=== PATIENT | female | born 2000 | race Two or more races ===

== ENCOUNTER 2024-10-04 08:58 | Emergency (ER) | payer OTHER, MEDICAID, SELFPAY ==
[2024-10-04 08:59] VITALS: BP 125/78; PULSE 46; RESP 16; TEMP 36.9; O2SAT 99
--- NOTE | 2024-10-04 09:07 | XR_ITS ---
Examination: Pelvic ultrasound, transabdominal, complete Technique: Transabdominal ultrasound of the pelvis performed using grayscale imaging Date and time of exam: October 04, 2024 0934 hours INDICATIONS: Pelvic pain beginning 3 days ago. FINDINGS: Uterus 6.8 x 3.2 x 5.9 cm endometrial stripe 0.6 cm No uterine mass or intrauterine gestation Right ovary 3.0 x 3.9 x 3.1 cm arterial flow Left ovary 2.9 x 1.6 x 3.1 cm arterial flow IMPRESSION: Negative examination
[2024-10-04 10:24] LABS: Collection Type, Urine Clean Catch
[2024-10-04 10:25] LABS: Basophils % (Auto) 1 % (0-2.5); Eosinophils # (Auto) 0.1 Thou/mm3 (0.0-0.5); Eosinophils % (Auto) 2 % (0-10); Hematocrit 40.5 % (36.0-46.0); Hemoglobin 13.5 g/dL (12.0-16.0); Immature Granulocytes % (Auto) 0 % (0-0); Immature Granulocytes Auto 0.01 Thou/mm3 (0.00-0.00); Lymphocytes # (Auto) 2.1 Thou/mm3 (1.0-4.8); Lymphocytes % (Auto) 43 % (10-50); Mean Corpuscular HGB Conc 33.3 g/dl (31.0-37.0); Mean Corpuscular Hemoglobin 28.1 pg (25.0-35.0); Mean Corpuscular Volume 84 fL (80-100); Monocytes # (Auto) 0.3 Thou/mm3 (0.0-0.8); Monocytes % (Auto) 5 % (0-12); Neutrophils # (Auto) 2.5 Thou/mm3 (1.8-7.7); Neutrophils % (Auto) 49 % (37-80); Nucleated Red Blood Cell % 0 /100 WBC (0); Platelet Count 199 Thou/mm3 (140-440); RDW Standard Deviation 40.9 fL (36.4-46.3); Red Blood Count 4.81 Miln/mm3 (4.00-5.20)
[2024-10-04 10:35] LABS: Bacteria,Urine 1+; Bilirubin,Urine Negative (Negative); Blood,Urine Negative (Negative); Clarity,Urine Clear (Clear/Hazy); Color,Urine Colorless (Lt Yel-Yel); Glucose, Urine Negative (Negative); Ketones,Urine Negative (Negative); Leukocyte Esterase,Urine Negative (Negative); Nitrite,Urine Negative (Negative); Protein,Urine Negative (Neg - Trace); RBC,Urine 2 /hpf (0-3); Squamous Epithelial Cell,Urine 9 /hpf (0-5); Urobilinogen,Urine Negative mg/dL (0.0-1.0); WBC,Urine 1 /hpf (0-5)
[2024-10-04 10:48] LABS: Alanine Aminotransferase 25 U/L (10-49); Albumin, Serum 4.7 gm/dL (3.5-5.0); Albumin/Globulin Ratio 1.8 (1.2-2.2); Alkaline Phosphatase 67 U/L (46-116); Anion Gap 7 (7-16); Aspartate Amino Transferase 19 U/L (0-34); BUN/Creatinine Ratio 14 Ratio (12-20); Bilirubin,Total 0.5 mg/dL (0.3-1.2); Blood Urea Nitrogen 10 mg/dL (9-23); Calcium 9.6 mg/dL (8.3-10.6); Calcium (Corrected) 9.6 mg/dL (8.5-10.1); Carbon Dioxide 25.4 mMol/L (20.0-31.0); Chloride 105 mMol/L (98-107); Creatinine (Component) 0.7 mg/dL (0.6-1.3); Globulin 2.6 gm/dL (2.3-3.5); Glucose 85 mg/dL (74-106); Lipase 34 U/L (12-53); Osmolality,Calculated 271 (275-295); Sodium 137 mMol/L (136-145); Total Protein 7.3 gm/dL (5.7-8.2); eGFR > 60 See Note
[2024-10-04 10:56] LABS: Culture Indicated,Urine Yes
[2024-10-04 11:07] LABS: HCG Qualitative,Urine Negative
--- NOTE | 2024-10-04 12:05 | PD.EDABDPN ---
ED Abdominal Pain RME/HPI General Chief Complaint: Abdominal Pain Stated complaint: lower abd pain x 3 days Time seen by provider: 10/04/24 09:00 Arrival date/time: 10/04/24 08:58 23-year-old female presents emergency department complains of pelvic pain ongoing x 3 days Limitations: no limitations Related Data Previous Rx's ?Medication ?Instructions ?Recorded tahshanrzfdhibg-yzktdmrdpfputyg-IZ 5 ml PO Q6H PRN congestion/cough 11/22/23 2 mg-30 mg-10 mg/5 mL oral syrup #120 mL (Bromfed DM) yjflyjufohijfmd-coctlygnoyitjhf-JV 5 ml PO Q6H PRN congestion/cough 11/22/23 2 mg-30 mg-10 mg/5 mL oral syrup #120 mL (Bromfed DM) ibuprofen 600 mg tablet 600 mg PO Q6H PRN fever or pain 11/22/23 #30 tabs ibuprofen 600 mg tablet 600 mg PO Q6H PRN fever or pain 11/22/23 #30 tabs ibuprofen 600 mg tablet 600 mg PO Q6H #30 tabs 10/04/24 Allergies Allergy/AdvReac Type Severity Reaction Status Date / Time No Known Allergies Allergy Verified 10/04/24 08:58 Review of Systems Review of Systems Systems Reviewed: All systems reviewed, normal except as documented Constitutional Constitutional: Reports system reviewed and no additional complaints, except as documented, Denies fever(s) and Denies headache(s) Eyes Eyes: Reports system reviewed and no additional complaints, except as documented and Denies blurry vision ENT Ears, Nose, Mouth, and Throat: Reports system reviewed and no additional complaints, except as documented, Denies headache(s), Denies nasal congestion and Denies nasal discharge Cardiovascular Cardiovascular: Reports system reviewed and no additional complaints, except as documented, Denies chest pain and Denies dyspnea Respiratory Respiratory: Reports system reviewed and no additional complaints, except as documented, Denies chest congestion, Denies cough and Denies dyspnea Gastrointestinal Gastrointestinal: Reports system reviewed and no additional complaints, except as documented and Denies abdominal pain Genitourinary Genitourinary: Reports system reviewed and no additional complaints, except as documented, Denies abnormal vaginal bleeding, Denies hematuria, Reports pelvic pain, Denies vaginal discharge, Denies vaginal dryness, Denies vaginal odor and Denies vaginal pruritus Integumentary/Breasts Skin/Breast: Reports system reviewed and no additional complaints, except as documented and Denies rash Neurologic Neurologic: Reports system reviewed and no additional complaints, except as documented, Reports as per HPI and Denies headache(s) Past Medical History Past Medical History NEUROLOGIC: Negative Neurological Disorders CARDIAC: Negative Cardiac Disorders ED Exam General Limitations: Present no limitations General appearance: Present alert and in no apparent distress Head Head exam: Present atraumatic Eye Eye exam: Present normal appearance, PERRL and EOMI ENT ENT exam: Present normal exam, normal oropharynx and mucous membranes moist Neck Neck exam: Present normal inspection, full ROM and trachea midline Chest Chest inspection: Present normal inspection and symmetric chest wall rise Respiratory Respiratory exam: Present normal lung sounds bilaterally Cardiovascular Cardiovascular exam: Present regular rate, normal rhythm and normal heart sounds Abdominal Exam Abdominal exam: Present soft and normal bowel sounds Extremities Exam Extremities exam: Present normal inspection and full ROM Back Exam Back exam: Present normal inspection and full ROM Neurological Exam Neurological exam: Present alert, oriented X3 and CN II-XII intact Psychiatric Psychiatric exam: Present normal affect and normal mood Skin Skin exam: Present warm, dry, intact and normal color Course Quality Measures none Orders Category Date Time Status US pelvic complete Stat Exams 10/04/24 09:07 Completed CBC Stat Lab 10/04/24 10:15 Completed Comprehensive Metabolic Panel Stat Lab 10/04/24 10:15 Completed HCG Qualitative,Urine Stat Lab 10/04/24 10:06 Completed Lipase Stat Lab 10/04/24 10:15 Completed UA, C/S IF [Urinalysis, C/S if Indicated] Stat Lab 10/04/24 10:06 Completed Urine Culture Stat Lab 10/04/24 10:06 Received Vital Signs Vital signs: Vital Signs Temperature 98.5 F 10/04/24 08:59 Pulse Rate 46 L 10/04/24 08:59 Respiratory Rate 16 10/04/24 08:59 Blood Pressure 125/78 10/04/24 08:59 Pulse Oximetry (%) 99 10/04/24 08:59 Oxygen Delivery Method Room Air 10/04/24 08:59 O2 saturation 99% room air within normal limits Abdominal Pain MDM MDM Narrative MDM Narrative:: 23-year-old female presents emergency department complains of pelvic pain ongoing x 3 days On exam patient well-appearing patient does not appear ill or toxic patient's not appear in acute distress Lab work as well as ultrasound obtained no acute emergent findings noted Patient discharged home in no distress to follow-up with primary care doctor in the next 24 to 48 hours and for any worsening symptoms to return to the ER immediately Patient data External records reviewed:: [facility] previous records Clinical information provided by:: patient Social determinants that could affect healthcare access:: none Patient has the following chronic illnesses:: None How is presenting disease/condition affected by chronic disease/condition?: no chronic disease Evaluation data The following diagnostics were reviewed and interpreted by me:: lab results and radiology exam(s) Lab and/or radiology exams considered but not ordered:: Labs radiology obtained Interpretation Summary: Reviewed by me Medications / Prescriptions Medications or Prescriptions considered but not ordered:: Given no meds Medication administrations:: Given no meds Consultations Consultation(s) initiated? (list below): No Diagnosis Differential diagnosis abdominal pain: abdominal pain, acute appendicitis, calculus of kidney and pancreatitis Most likely diagnosis given after review of the tests above:: Pelvic pain Admission Indicated Admission indicated?: not indicated Admission Request Was there a request for admission?: No Disposition Plan Disposition Plan: Discharge Discharge Attestation Discharge Attestation: The patient and all family members were given an opportunity to ask questions and understood the discharge instructions. Discharge instructions specifically effects, indications for sooner follow up or return to the emergency department, and the expected course of current diagnosis. Patient condition: Stable Discharge Plan Plan Patient Disposition: HOME (Self Care) Disposition Comment: Stable Prescriptions/Referrals Prescriptions/Med Rec: New ibuprofen 600 mg tablet 600 mg PO Q6H Qty: 30 0RF No Action rcvaqleqtkbfmxl-yrxhvqgja-ZY [Bromfed DM] 2-30-10 mg/5 mL syrup 5 ml PO Q6H PRN (Reason: congestion/cough) Qty: 120 0RF ibuprofen 600 mg tablet 600 mg PO Q6H PRN (Reason: fever or pain) Qty: 30 0RF ibuprofen 600 mg tablet 600 mg PO Q6H PRN (Reason: fever or pain) Qty: 30 0RF jumrrqdyqpkauxu-cjfbtywio-KL [Bromfed DM] 2-30-10 mg/5 mL syrup 5 ml PO Q6H PRN (Reason: congestion/cough) Qty: 120 0RF Referrals: Cali Bernal MD [Primary Care Provider] - 10/06/24 Problem List Clinical Impression: Pelvic pain Patient/Caregiver Discharge Instructions Education Materials: ED Pelvic Pain, Unknown Cause Additional Instructions: Please follow up with your primary care doctor in the next 24-48hrs for any worsening symptoms return here immediately Print Language: Slovak Stand Alone Forms: Shaila Award Info., Work/School Release, Patient Portal Info Letter MD Attestation MD Attestation The patient was seen by the midlevel practitioner. I, the co-signing physician, was present during the entire ER visit. While I did not physically examine the patient, I was available for consultation as needed.
== END 2024-10-04 12:29 | disposition home or self-care (01) ==
PROVIDERS: Nurse Practitioner Primary Care; Emergency Provider Emergency Medicine; PCP Family Medicine
DX: R10.2 Pelvic and perineal pain (principal)
CPT/HCPCS: 36415; 76856; 80053; 81001; 81025; 83690; 85025; 87086; 99284

== ENCOUNTER 2024-10-30 05:19 | Emergency (ER) | payer OTHER, MEDICAID, SELFPAY ==
[2024-10-30 05:20] VITALS: BMI 29.2
[2024-10-30 05:28] VITALS: BP 113/71; PULSE 57; RESP 19; TEMP 36.6; O2SAT 98
--- NOTE | 2024-10-30 05:36 | XR_ITS ---
Examination: Pelvic ultrasound, transabdominal, complete Technique: Transabdominal ultrasound of the pelvis performed using grayscale imaging Date and time of exam: October 30, 2024 0720 hrs. Comparison October 04, 2024 Indications: Onset right-sided pelvic pain beginning one month ago Findings: Uterus 8.8 x 3.5 x 4.6 cm No uterine mass or intrauterine gestation Endometrial stripe 0.9 cm Right ovary 3.3 x 2.8 x 2.6 cm arterial flow Left ovary 4.0 x 3.3 x 3.2 cm arterial flow No fluid in the cul-de-sac Impression: Negative examination
--- NOTE | 2024-10-30 05:37 | PD.EDRME ---
Rapid Medical Screening Exam RME Arrival date/time: 10/30/24 05:19 24-year-old female presents emergency department complaining of right pelvic pain that is been ongoing for several weeks. Chief Complaint: Urogenital-Female Vital signs: Vital Signs Temperature 97.9 F 10/30/24 05:28 Pulse Rate 57 L 10/30/24 05:28 Respiratory Rate 19 10/30/24 05:28 Blood Pressure 113/71 10/30/24 05:28 Pulse Oximetry (%) 98 10/30/24 05:28 Oxygen Delivery Method Room Air 10/30/24 05:28 Vital signs reviewed by provider: Yes
[2024-10-30 06:48] LABS: Collection Type, Urine Clean Catch
[2024-10-30 07:31] LABS: Bacteria,Urine Rare; Bilirubin,Urine Negative (Negative); Blood,Urine Negative (Negative); Clarity,Urine Clear (Clear/Hazy); Color,Urine Lt-Brown (Lt Yel-Yel); Culture Indicated,Urine Not Indicated; Glucose, Urine Negative (Negative); Ketones,Urine Negative (Negative); Leukocyte Esterase,Urine Negative (Negative); Nitrite,Urine Negative (Negative); Protein,Urine Negative (Neg - Trace); RBC,Urine < 1 /hpf (0-3); Specific Gravity,Urine 1.031 (1.001-1.035); Squamous Epithelial Cell,Urine 10 /hpf (0-5); Urobilinogen,Urine Negative mg/dL (0.0-1.0); WBC,Urine 6 /hpf (0-5)
[2024-10-30 07:34] LABS: Basophils % (Auto) 1 % (0-2.5); Eosinophils # (Auto) 0.1 Thou/mm3 (0.0-0.5); Eosinophils % (Auto) 2 % (0-10); Hematocrit 40.4 % (36.0-46.0); Hemoglobin 13.3 g/dL (12.0-16.0); Immature Granulocytes % (Auto) 0 % (0-0); Lymphocytes # (Auto) 2.2 Thou/mm3 (1.0-4.8); Lymphocytes % (Auto) 42 % (10-50); Mean Corpuscular HGB Conc 32.9 g/dl (31.0-37.0); Mean Corpuscular Volume 85 fL (80-100); Monocytes # (Auto) 0.3 Thou/mm3 (0.0-0.8); Monocytes % (Auto) 6 % (0-12); Neutrophils # (Auto) 2.6 Thou/mm3 (1.8-7.7); Neutrophils % (Auto) 50 % (37-80); Nucleated Red Blood Cell % 0 /100 WBC (0); Platelet Count 192 Thou/mm3 (140-440); RDW Standard Deviation 41.6 fL (36.4-46.3); Red Blood Count 4.75 Miln/mm3 (4.00-5.20); White Blood Count 5.2 Thou/mm3 (3.6-11.0)
[2024-10-30 07:40] LABS: Alanine Aminotransferase 26 U/L (10-49); Albumin, Serum 4.8 gm/dL (3.5-5.0); Albumin/Globulin Ratio 2.2 (1.2-2.2); Alkaline Phosphatase 73 U/L (46-116); Anion Gap 2 (7-16); Aspartate Amino Transferase 16 U/L (0-34); BUN/Creatinine Ratio 13 Ratio (12-20); Bilirubin,Total 0.4 mg/dL (0.3-1.2); Blood Urea Nitrogen 10 mg/dL (9-23); Calcium 9.2 mg/dL (8.3-10.6); Calcium (Corrected) 9.2 mg/dL (8.5-10.1); Carbon Dioxide 25.6 mMol/L (20.0-31.0); Chloride 107 mMol/L (98-107); Creatinine (Component) 0.8 mg/dL (0.6-1.3); Estimated Creatinine Clearance 99.4 mL/min (>60); Globulin 2.2 gm/dL (2.3-3.5); Glucose 98 mg/dL (74-106); HCG,Qualitative Serum Negative; Osmolality,Calculated 269 (275-295); Potassium 4.4 mMol/L (3.4-5.1); Sodium 135 mMol/L (136-145); eGFR > 60 See Note
--- NOTE | 2024-10-30 07:48 | XR_ITS ---
Examination: CT abdomen and pelvis without contrast. Coronal 3-D reconstructions. Sagittal 2-D reconstructions. Date and time of exam:October 30, 2024 0848 hrs. Comparison March 31, 2020 Indications: Right-sided abdominal pain radiating to the back beginning 2 weeks ago CTDI: vol (mGy): 8.91 DLP: (mGycm): 459 Technique: Axial images of the abdomen have been obtained, 3 mm slice thickness Intravenous contrast material has not been administered. Low dose protocols were performed. One or more of the following dose reduction techniques were used; automated exposure control, adjustment of the mA and/or KV according to patient size, use of iterative reconstruction technique. Findings: No focal liver or splenic lesions No gallstones No pancreatic or adrenal mass No renal or ureteral calculi, no hydronephrosis Aorta normal size No bowel obstruction Absent appendix No diverticulitis Anteverted uterus with no uterine or adnexal mass Intact urinary bladder No hernia defect Mild disc narrowing L5-S1 L5-S1 3 mm right paracentral disc bulge Impression: No acute process in the abdomen or pelvis Mild degenerative disc disease L5-S1 L5-S1 3 mm right paracentral disc bulge contiguous with the right S1 nerve root, consider elective MRI lumbar spine without contrast follow-up
[2024-10-30 07:49] VITALS: BP 120/87; PULSE 41; RESP 19; TEMP 37.1; O2SAT 99
[2024-10-30 08:09] LABS: Sperm,Urine Present
[2024-10-30 08:16] VITALS: PULSE 38
[2024-10-30 09:04] VITALS: BP 108/69; PULSE 43; RESP 15; TEMP 36.9; O2SAT 100
[2024-10-30] MEDS: ATROPINE SULF INJ 0.1 MG/ML SYR 10 ML 1 MG IV (09:33)
[2024-10-30 10:01] LABS: B-Type Natriuretic Peptide < 20 pg/mL (0-100)
[2024-10-30 10:04] LABS: Magnesium 2.2 mg/dL (1.6-2.6); Thyroid Stimulating Hormone 3.12 uIU/mL (0.55-4.78); Troponin I < 0.020 ng/mL (0.0-0.045)
[2024-10-30 11:15] VITALS: BP 109/62; PULSE 51; RESP 19; TEMP 36.8; O2SAT 98
[2024-10-30 11:57] VITALS: BP 101/63; PULSE 47; RESP 20; TEMP 36.8; O2SAT 99
--- NOTE | 2024-10-30 12:00 | EDNOTE_ITS ---
ED Abdominal Pain RME/HPI General Chief Complaint: Urogenital-Female Stated complaint: PELVIC PAIN X 3WEEKS Time seen by provider: 10/30/24 06:32 Arrival date/time: 10/30/24 05:19 RME / HPI RME / HPI narrative: 10/30/24 05:19 24-year-old female presents emergency department complaining of right pelvic pain that is been ongoing for several weeks. This section includes all my notes and documentations, including HPI, PE, and ED course.? Bon Estrada MD HPI: 24 year old female here with about a month history of right sided abdominal/back pain. Has trouble localizing the pain further. Has trouble describing the quality and quantity of the pain. Uncertain about exacerbating or relieving factors. No other complaints. ROS: All negative except as documented in HPI. Physical Exam: General:? Alert and oriented.? No acute distress when remaining still. Eyes:? Conjunctivae and lids clear.? ENT:? No nasal congestion.? Neck:? Supple.? Heart:? RRR.? Lungs:? No respiratory distress.? Good air movement.? No rhonchi, wheezing, rales.?? Abdomen:? Soft with equivocal tenderness, difficult to localize.? Normal bowel sounds.? No distension.? No rebound or guarding.?? Back:? No CVA tenderness.?? Skin:? Warm and dry.?? Neuro:? Alert and oriented X 3.? No peripheral motor deficits. I reviewed all diagnostic test results. My interpretation of the EKG is sinus bradycardia with nonspecific ST-T changes. My review of the pelvic US report is no acute findings. My review of the abdominal CT report is L5-S1 bulging with stenosis. Blood tests and urine tests are unremarkable. At this point, diagnoses include?L5-S1 stenosis and bradycardia. Treatment here included?Atropine 1 mg IV. Patient reports on and off malaise and fatigue and dizziness. No syncope or near syncope. Patient remained stable. 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 About the presentation and exam and diagnostics and treatments here.? And possible need of further care in the hospital.? Recommended more outpatient cardiac workup. Recommended more outpatient care. Based on my best medical judgment, made decision no further evaluation or treatment indicated at this time.? Patient understands and agrees to the discharge instructions customized and printed, see below. Discharge Instructions from Dr. Estrada: --After evaluation, your sided pain is due to pinched L5-S1 nerve due to disc bulging. This is Sciatica (same as Lumbar Radiculopathy or Spinal Stenosis). --This condition is difficult because normal pain medications don?t work very well on nerve pain. --Despite the pain, try to resume your normal chores and activities.? Because inactivity is terrible for this condition.? And activity won?t make your condition worse.? Use a cane of stick in your left hand to help stand and walk.? --Use Ibuprofen and snyf-olq-wkfzsto lidocaine patches and Tylenol with codeine and lidocaine patches as needed.? Don't expect the pain to go away completely, hoping to take the edge off.?? --When resting and sleeping, try left sided position (with your knees to your chest and bending forward).? This can take some pressure off the nerve and help your pain. --Apply ice or heat if helpful. --See a private doctor (outside the ER) on 11/01/2024 for recheck and further care. Ask to help you get more care not available here in the ER.? Such as MRI imaging of your back.? Some choose to have surgery for this condition. But you need to have MRI imaging to confirm the diagnosis and assess the severity to get the best treatments. And for your slow heart rate, ask to help you get more tests for your heart that cannot be done here in the ER. Such as Holter Monitor (cardiac monitoring at home from a day to even a month), heart stress test (on treadmill or with medication), echocardiogram (imaging of your heart structures), heart catherization (checking for blockages in your heart arteries), and a referral to see a [facility]. --Seek immediate medical care with paralysis in your foot, losing control of your bladder or bowels, saddle numbness (anal numbness), or with any concerns.?? Related Data Previous Rx's ?Medication ?Instructions ?Recorded acetaminophen 300 mg-codeine 30 mg 2 tab PO TID PRN pain #20 tabs 10/30/24 tablet Allergies Allergy/AdvReac Type Severity Reaction Status Date / Time No Known Allergies Allergy Verified 10/04/24 08:58 Course Quality Measures none Orders Category Date Time Status EKG (ED ONLY) *Do not use* NOW Care 10/30/24 08:34 Completed Saline [Insert IV] NOW Care 10/30/24 08:[address] abdomen pelvis wo con Stat Exams 10/30/24 07:48 Completed EKG (ED Only) Stat Exams 10/30/24 08:34 Ordered US pelvic complete Stat Exams 10/30/24 05:36 Completed BNP [B-Type Natriuretic Peptide] Stat Lab 10/30/24 09:17 Completed CBC Stat Lab 10/30/24 07:18 Completed CMP [Comprehensive Metabolic Panel] Stat Lab 10/30/24 07:18 Completed HCG,Qualitative Serum Stat Lab 10/30/24 07:18 Completed Magnesium Stat Lab 10/30/24 09:17 Completed TSH [Thyroid Stimulating Hormone] Stat Lab 10/30/24 09:17 Completed Troponin I Stat Lab 10/30/24 09:17 Completed Urinalysis, C/S if Indicated Stat Lab 10/30/24 06:44 Completed Atropine Inj SYR Med 10/30/24 09:15 Discontinued 1 mg IV X1 ONE Vital Signs Vital signs: Vital Signs Temperature 97.9 F 10/30/24 05:28 Pulse Rate 57 L 10/30/24 05:28 Respiratory Rate 19 10/30/24 05:28 Blood Pressure 113/71 10/30/24 05:28 Pulse Oximetry (%) 98 10/30/24 05:28 Oxygen Delivery Method Room Air 10/30/24 05:28 Abdominal Pain MDM Patient data External records reviewed:: [facility] previous records Clinical information provided by:: patient Social determinants that could affect healthcare access:: none Patient has the following chronic illnesses:: none How is presenting disease/condition affected by chronic disease/condition?: no chronic disease Evaluation data The following diagnostics were reviewed and interpreted by me:: lab results, radiology exam(s) and EKG tracing(s) Lab and/or radiology exams considered but not ordered:: none Interpretation Summary: L5-S1 stenosis and bradycardia Medications / Prescriptions Medications or Prescriptions considered but not ordered:: none Medication administrations:: Medication Administration History Discontinued Medications Atropine Sulfate (Atropine Sulf Inj 0.1 Mg/Ml Syr 10 Ml) 1 mg IV X1 ONE Stop: 10/30/24 09:16 Last Admin: 10/30/24 09:33 Dose: 1 mg Documented By: GM atropine Consultations Consultation(s) initiated? (list below): Yes Diagnosis Differential diagnosis abdominal pain: acute appendicitis, calculus of kidney, constipation, diverticulitis, endometriosis, gastroenteritis and small bowel obstruction Most likely diagnosis given after review of the tests above:: L5-S1 stenosis and bradycardia Admission Indicated Admission indicated?: not indicated Admission Request Was there a request for admission?: No Disposition Plan Disposition Plan: Discharge Discharge Attestation Discharge Attestation: The patient and all family members were given an opportunity to ask questions and understood the discharge instructions. Discharge instructions specifically effects, indications for sooner follow up or return to the emergency department, and the expected course of current diagnosis. Patient condition: Stable Discharge Plan Plan Patient Disposition: HOME (Self Care) Prescriptions/Referrals Prescriptions/Med Rec: New acetaminophen-codeine 300-30 mg tablet 2 tab PO TID MDD 6 PRN (Reason: pain) Qty: 20 0RF Referrals: Gianfranco Oliver [Primary Care Provider] - In 1 week Problem List Clinical Impression: Right sciatic nerve pain Patient/Caregiver Discharge Instructions Discharge Activity: activity as tolerated Education Materials: ED Bradycardia, ED Sciatica Additional Instructions: Discharge Instructions from Dr. Estrada: --After evaluation, your sided pain is due to pinched L5-S1 nerve due to disc bulging. This is Sciatica (same as Lumbar Radiculopathy or Spinal Stenosis). --This condition is difficult because normal pain medications don?t work very well on nerve pain. --Despite the pain, try to resume your normal chores and activities.? Because inactivity is terrible for this condition.? And activity won?t make your condition worse.? Use a cane of stick in your left hand to help stand and walk.? --Use Ibuprofen and urgu-bez-nxkmgqi lidocaine patches and Tylenol with codeine and lidocaine patches as needed.? Don't expect the pain to go away completely, hoping to take the edge off.?? --When resting and sleeping, try left sided position (with your knees to your chest and bending forward).? This can take some pressure off the nerve and help your pain. --Apply ice or heat if helpful. --See a private doctor (outside the ER) on 11/01/2024 for recheck and further care. Ask to help you get more care not available here in the ER.? Such as MRI imaging of your back.? Some choose to have surgery for this condition. But you need to have MRI imaging to confirm the diagnosis and assess the severity to get the best treatments. And for your slow heart rate, ask to help you get more tests for your heart that cannot be done here in the ER. Such as Holter Monitor (cardiac monitoring at home from a day to even a month), heart stress test (on treadmill or with medication), echocardiogram (imaging of your heart structures), heart cat herization (checking for blockages in your heart arteries), and a referral to see a [facility]. --Seek immediate medical care with paralysis in your foot, losing control of your bladder or bowels, saddle numbness (anal numbness), or with any concerns.?? Print Language: Botswanan Stand Alone Forms: Shaila Award Info., Patient Portal Info Letter
== END 2024-10-30 12:16 | disposition home or self-care (01) ==
PROVIDERS: Emergency Provider Emergency Medicine; PCP Internal Medicine
DX: M54.31 Sciatica, right side (principal)
CPT/HCPCS: 36415; 74176; 76856; 80053; 81001; 83735; 83880; 84443; 84484; 84703; 85025; 99284; J0461

== ENCOUNTER 2024-11-05 21:18 | Emergency (ER) | payer OTHER, MEDICAID, SELFPAY ==
[2024-11-05 21:19] VITALS: BMI 30.5
--- NOTE | 2024-11-05 21:24 | EKG_ITS ---
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
[2024-11-05 21:26] VITALS: BP 111/75; PULSE 57; RESP 18; TEMP 36.9; O2SAT 98
--- NOTE | 2024-11-05 21:43 | XR_ITS ---
Examination: PA lateral chest 2 views Technique: Upright PA lateral chest 2 views Indications: Onset chest pain today Findings: Normal heart size Lungs are clear. The osseous structures are intact Impression: No active disease
--- NOTE | 2024-11-05 21:43 | PD.EDRME ---
Rapid Medical Screening Exam RME Arrival date/time: 11/05/24 21:18 24F with no significant PMH presents to ED with 1 day of CP and SOB. Patient notes her HR has been slower than usual recently. Patient denies taking any meds, as well as drug/alcohol use. Chief Complaint: Chest Pain Time Seen by Provider: 11/05/24 21:55 Vital signs: Vital Signs Temperature 98.4 F 11/05/24 21:26 Pulse Rate 57 L 11/05/24 21:26 Respiratory Rate 18 11/05/24 21:26 Blood Pressure 111/75 11/05/24 21:26 Pulse Oximetry (%) 98 11/05/24 21:26 Oxygen Delivery Method Room Air 11/05/24 21:26
[2024-11-05 22:23] LABS: Basophils # (Auto) 0.1 Thou/mm3 (0.0-0.2); Basophils % (Auto) 1 % (0-2.5); Eosinophils # (Auto) 0.2 Thou/mm3 (0.0-0.5); Eosinophils % (Auto) 2 % (0-10); Hematocrit 36.7 % (36.0-46.0); Hemoglobin 12.7 g/dL (12.0-16.0); Immature Granulocytes % (Auto) 0 % (0-0); Immature Granulocytes Auto 0.02 Thou/mm3 (0.00-0.00); Lymphocytes % (Auto) 43 % (10-50); Mean Corpuscular HGB Conc 34.6 g/dl (31.0-37.0); Mean Corpuscular Hemoglobin 28.7 pg (25.0-35.0); Mean Corpuscular Volume 83 fL (80-100); Monocytes # (Auto) 0.3 Thou/mm3 (0.0-0.8); Monocytes % (Auto) 5 % (0-12); Neutrophils # (Auto) 3.3 Thou/mm3 (1.8-7.7); Neutrophils % (Auto) 48 % (37-80); Nucleated Red Blood Cell % 0 /100 WBC (0); Platelet Count 213 Thou/mm3 (140-440); RDW Standard Deviation 40.7 fL (36.4-46.3); Red Blood Count 4.43 Miln/mm3 (4.00-5.20); White Blood Count 6.8 Thou/mm3 (3.6-11.0)
[2024-11-05 22:34] LABS: B-Type Natriuretic Peptide < 20 pg/mL (0-100)
[2024-11-05 22:35] LABS: Alanine Aminotransferase 29 U/L (10-49); Albumin, Serum 4.7 gm/dL (3.5-5.0); Alkaline Phosphatase 73 U/L (46-116); Anion Gap 6 (7-16); Aspartate Amino Transferase 20 U/L (0-34); BUN/Creatinine Ratio 16 Ratio (12-20); Bilirubin,Total 0.3 mg/dL (0.3-1.2); Blood Urea Nitrogen 13 mg/dL (9-23); Calcium 9.8 mg/dL (8.3-10.6); Calcium (Corrected) 9.8 mg/dL (8.5-10.1); Carbon Dioxide 27.7 mMol/L (20.0-31.0); Chloride 107 mMol/L (98-107); Creatinine (Component) 0.8 mg/dL (0.6-1.3); Estimated Creatinine Clearance 101.5 mL/min (>60); Globulin 2.4 gm/dL (2.3-3.5); Glucose 80 mg/dL (74-106); Osmolality,Calculated 280 (275-295); Potassium 4.1 mMol/L (3.4-5.1); Sodium 141 mMol/L (136-145); Total Protein 7.1 gm/dL (5.7-8.2); Troponin I < 0.020 ng/mL (0.0-0.045); eGFR > 60 See Note
--- NOTE | 2024-11-05 22:40 | EDNOTE_ITS ---
ED Chest Pain RME/HPI General Chief Complaint: Chest Pain Stated Complaint: CHEST PAIN Time Seen by Provider: 11/05/24 21:55 Arrival date/time: 11/05/24 21:18 RME / HPI RME / HPI narrative: 24-year-old female patient came in for evaluation regarding left-sided chest pain. Onset of symptoms earlier this morning as sudden onset of left-sided chest pain, with shortness of breath, described as dull ache, severity mild. Patient noticed that her heart rate was also lower than usual recently. Patient told me that everything started after drinking coffee. Patient denies any other complaints no medications taken prior to arrival. Patient is waiting to be seen by wool hat sanding machine operator. Related Data Previous Rx's ?Medication ?Instructions ?Recorded acetaminophen 300 mg-codeine 30 mg 2 tab PO TID PRN pain #20 tabs 10/30/24 tablet Allergies Allergy/AdvReac Type Severity Reaction Status Date / Time No Known Allergies Allergy Verified 10/04/24 08:58 Review of Systems Review of Systems Narrative Review of Systems: Review of system reviewed and within normal limits except mentioned in HPI ED Exam Narrative Physical exam: VITAL SIGNS: Reviewed. GENERAL APPEARANCE: Alert and interactive, follows commands, no acute distress, HEAD AND FACE: Non-traumatic. ENT: PERRL, pink conjunctivitis, eyelid no trauma, Mucous membrane moist. NECK: Supple, nontender, no nuchal rigidity. CHEST: No tenderness, no crepitus, no paradoxical movement, no retractions. LUNGS: Clear, well ventilated, symmetric, no rales, no wheezing, no ronchi, no stridor, good breath sounds bilaterally. HEART: Regular rate, regular rhythm, no murmur, no gallops. ABDOMEN: Soft, positive bowel sounds, nondistended, no guarding, nontender, no rebound, no masses, RECTAL: Deferred. GENITAL: Deferred. NEUROLOGICAL: Gross motor function intact sensory function intact, Appropriate for age. MUSCULOSKELETAL: low back nontender, full range of motion. EXTREMITIES: Nontender, full range of motion. SKIN: Color pink, dry, no rash, no lacerations, no abrasions, no contusions. LYMPHATICS: Deferred. Course Quality Measures none Orders Category Date Time Status EKG (ED ONLY) *Do not use* NOW Care 11/05/24 21:25 Completed EKG (ED Only) Stat Exams 11/05/24 21:24 Draft XR chest 2V Stat Exams 11/05/24 21:43 Completed B-Type Natriuretic Peptide Stat Lab 11/05/24 22:02 Completed CBC Stat Lab 11/05/24 22:02 Completed Comprehensive Metabolic Panel Stat Lab 11/05/24 22:02 Completed Drug Screen,Urine Stat Lab 11/05/24 22:19 Completed Troponin I Stat Lab 11/05/24 22:02 Completed Vital Signs Vital signs: Vital Signs Temperature 98.4 F 11/05/24 21:26 Pulse Rate 57 L 11/05/24 21:26 Respiratory Rate 18 11/05/24 21:26 Blood Pressure 111/75 11/05/24 21:26 Pulse Oximetry (%) 98 11/05/24 21:26 Oxygen Delivery Method Room Air 11/05/24 21:26 Chest Pain MDM Narrative MDM Narrative:: 24-year-old female patient came in for evaluation regarding left-sided chest pain. Onset of symptoms earlier this morning as sudden onset of left-sided chest pain, with shortness of breath, described as dull ache, severity mild. Patient noticed that her heart rate was also lower than usual recently. Patient told me that everything started after drinking coffee. Patient denies any other complaints no medications taken prior to arrival. Patient is waiting to be seen by wool hat sanding machine operator. Cardiac workup all came back unremarkable including EKG that showed sinus bradycardia, ventricular rate of 45 bpm, no ST segment ovation depression noted. Currently patient is not having any chest pain. Patient was advised to closely follow-up with her appointment with wool hat sanding machine operator regarding her asymptomatic bradycardia. Patient agrees with the plan Patient data External records reviewed:: None Clinical information provided by:: patient Social determinants that could affect healthcare access:: none Patient has the following chronic illnesses:: None How is presenting disease/condition affected by chronic disease/condition?: no chronic disease Evaluation data The following diagnostics were reviewed and interpreted by me:: lab results, radiology exam(s) and EKG tracing(s) Lab and/or radiology exams considered but not ordered:: None Interpretation Summary: EKG as interpreted by me showed sinus bradycardia, ventricular rate of 45 bpm, no ST segment elevation depression noted. My imaging finding. Laboratory workup including cardiac workup/troponin, came back unremarkable. Medications / Prescriptions Medications or Prescriptions considered but not ordered:: None Medication administrations:: None Consultations Consultation(s) initiated? (list below): No Diagnosis Chest Pain Differential Diagnosis: pneumothorax, stable angina, atypical chest pain and chest pain Most likely diagnosis given after review of the tests above:: Chest pain Admission Indicated Admission indicated?: not indicated Explain why admission is indicated or not indicated:: Stable Admission Request Was there a request for admission?: No Disposition Plan Disposition Plan: Discharge Discharge Attestation Discharge Attestation: The patient was given an opportunity to ask questions and understood the discharge instructions. Discharge instructions specifically effects, indications for sooner follow up or return to the emergency department, and the expected course of current diagnosis. Patient condition: Stable Discharge Plan Plan Patient Disposition: HOME (Self Care) Disposition Comment: Stable Prescriptions/Referrals Prescriptions/Med Rec: No Action acetaminophen-codeine 300-30 mg tablet 2 tab PO TID MDD 6 PRN (Reason: pain) Qty: 20 0RF Problem List Clinical Impression: Chest pain Patient/Caregiver Discharge Instructions Discharge Activity: activity as tolerated Education Materials: ED Chest Pain, Noncardiac Additional Instructions: Thank you for the opportunity for serving you today. You are stable for discharged . You are advised to: Follow-up with your PCP in 1 to 2 days Follow-up with your wool hat sanding machine operator appointment as discussed Return to ED for worsening of symptoms Print Language: Faroese Stand Alone Forms: Shaila Award Info., Patient Portal Info Letter BRENDA/DARCY Supervising Physician BRENDA/DARCY Supervising Physician: MD Raad
[2024-11-05 22:56] LABS: Amphetamine/Methamp Scrn,U Negative (Negative); Barbiturate Screen,Urine Negative (Negative); Benzodiazepines Screen,Urine Negative (Negative); Benzoylecgonine Screen, Ur Negative (Negative); Fentanyl Screen,Urine Negative (Negative); Opiate Screen,Urine Negative (Negative); THC Screen,Urine Negative (Negative)
[2024-11-05 23:05] VITALS: BP 109/60; PULSE 56; RESP 18; TEMP 36.9; O2SAT 99
== END 2024-11-05 23:08 | disposition home or self-care (01) ==
LOC: SERX 23:23
PROVIDERS: Physician Assistant; Emergency Provider Emergency Medicine
DX: R07.89 Other chest pain (principal); R00.1 Bradycardia, unspecified; I49.8 Other specified cardiac arrhythmias
CPT/HCPCS: 36415; 71046; 80053; 80307; 83880; 84484; 85025; 93005; 99283

== ENCOUNTER 2025-03-15 05:40 | Day surgery (SDC) | payer OTHER, MEDICAID, SELFPAY ==
[2025-03-14 12:01] VITALS: BMI 31.3
--- NOTE | 2025-03-14 12:23 | EKG_ITS ---
[facility] Test Date: 2025-03-14 Pat Name: BERNARD OCHOA Department: Room: - Gender: Female Attendant Arcade: BENNIE : 2000 Requested By: Simon Mcneal Order Number: [id number] Reading MD: Simon Mcneal Measurements Intervals Dale Rate: 45 P: 5 KS: 182 QRS: 72 QRSD: 103 T: 53 QT: 446 QTc: 389 Interpretive Statements SINUS BRADYCARDIA WITH SINUS ARRHYTHMIA NONSPECIFIC T-WAVE ABNORMALITY Compared to ECG 11/05/2024 21:43:57 No significant changes /store/S0/[id number].pdf
[2025-03-14 12:49] LABS: Basophils % (Auto) 1 % (0-2.5); Eosinophils # (Auto) 0.1 Thou/mm3 (0.0-0.5); Eosinophils % (Auto) 2 % (0-10); Hematocrit 40.8 % (36.0-46.0); Hemoglobin 13.7 g/dL (12.0-16.0); Immature Granulocytes % (Auto) 0 % (0-0); Immature Granulocytes Auto 0.01 Thou/mm3 (0.00-0.00); Lymphocytes # (Auto) 2.1 Thou/mm3 (1.0-4.8); Lymphocytes % (Auto) 42 % (10-50); Mean Corpuscular HGB Conc 33.6 g/dl (31.0-37.0); Mean Corpuscular Hemoglobin 28.4 pg (25.0-35.0); Mean Corpuscular Volume 85 fL (80-100); Monocytes # (Auto) 0.3 Thou/mm3 (0.0-0.8); Monocytes % (Auto) 5 % (0-12); Neutrophils # (Auto) 2.5 Thou/mm3 (1.8-7.7); Neutrophils % (Auto) 50 % (37-80); Nucleated Red Blood Cell % 0 /100 WBC (0); Platelet Count 211 Thou/mm3 (140-440); RDW Standard Deviation 41.1 fL (36.4-46.3); Red Blood Count 4.83 Miln/mm3 (4.00-5.20); White Blood Count 4.9 Thou/mm3 (3.6-11.0)
[2025-03-14 13:00] LABS: Partial Thromboplastin Time 30.5 Seconds (22.0-36.0); Prothrombin Time 11.4 Seconds (9.0-12.2)
[2025-03-14 13:03] LABS: Alanine Aminotransferase 30 U/L (10-49); Albumin, Serum 4.5 gm/dL (3.5-5.0); Albumin/Globulin Ratio 1.8 (1.2-2.2); Alkaline Phosphatase 71 U/L (46-116); Anion Gap 5 (7-16); Aspartate Amino Transferase 21 U/L (0-34); BUN/Creatinine Ratio 13 Ratio (12-20); Beta HCG,Quantitative < 1 mIU/mL (<5.0); Bilirubin,Total 0.4 mg/dL (0.3-1.2); Blood Urea Nitrogen 12 mg/dL (9-23); Calcium 9.5 mg/dL (8.3-10.6); Calcium (Corrected) 9.5 mg/dL (8.5-10.1); Carbon Dioxide 27.6 mMol/L (20.0-31.0); Chloride 109 mMol/L (98-107); Creatinine (Component) 0.9 mg/dL (0.6-1.3); Estimated Creatinine Clearance 87.9 mL/min (>60); Globulin 2.5 gm/dL (2.3-3.5); Glucose 75 mg/dL (74-106); Osmolality,Calculated 281 (275-295); Potassium 4.1 mMol/L (3.4-5.1); Sodium 142 mMol/L (136-145); eGFR > 60 See Note
[2025-03-15] VITALS (8 sets, daily range): BP systolic 86–118; BP diastolic 55–64; PULSE 53–76; RESP 12–20; TEMP 36.1–36.5; O2SAT 97–100; BMI 31.6
--- NOTE | 2025-03-15 07:21 | ESHP_ITS ---
RE: BERNARD OCHOA : 2000 DATE OF ADMISSION: 03/12/2025 HISTORY OF PRESENT ILLNESS: This is a 24-year-old 2, para 1-0-1-1 with abnormal uterine bleeding and an endometrial polyp, who presents for removal of endometrial polyp. The patient desires future . ALLERGIES: NO KNOWN DRUG ALLERGIES. MEDICATIONS: None. SOCIAL HISTORY: She is . She denies any alcohol, drug use, or smoking. PAST MEDICAL HISTORY: Denies. FAMILY HISTORY: Denies. PAST SURGICAL HISTORY: Denies. REVIEW OF SYSTEMS: She denies any chest pain, palpitations, cough, fever, or shortness of breath or lower extremity pain. PHYSICAL EXAMINATION: VITAL SIGNS: Blood pressure is 110/70, heart rate 88, respirations 18, temperature 98.2. HEENT: Oropharynx and sclerae are clear. LUNGS: Clear to auscultation bilaterally. HEART: Regular rate and rhythm. ABDOMEN: Nontender. No scars noted . EXTREMITIES: Nontender. No edema. SKIN: No gross rashes or lesions. NEUROLOGIC: No focal deficits. ASSESSMENT: Abnormal uterine bleeding. Endometrial Polyp. PLAN: Hysteroscopy, fractional dilatation and curettage, and MyoSure removal of endometrial polyps. Informed consent was obtained. The patient was made aware of the risks, complications, alternatives, and benefits of the proposed procedure. She agrees. She is aware of the risk of injury to bowel, bladder, adjacent organs, pulmonary embolus, deep vein thrombosis, pelvic infection, reoperation to repair injury to internal organs, anesthesia complications. The possibility that a laparotomy needs to be performed to repair organs or control bleeding and the possibility that the procedure is not able to be completed due to severe adhesions or technical difficulties. She verbalized understanding and agrees to proceed with the procedure with an understanding of the risks and complications. DT: 11:50:31 TT: 12:24:00 Ref: [id number] - TID: [id number] [email or web address]
--- NOTE | 2025-03-15 08:26 | SUR.PHASEI ---
0826: Pt. wakes to name then drifts back to sleep, vitals stable, breathing unlabored, no signs of distress, peripad in place CDI, no active bleed noted, report received from Avni PALMER and Kamran LEMUS.
--- NOTE | 2025-03-15 09:23 | SUR.PHASEII ---
0923: Pt AAOx4, vitals stable, breathing unlabored, no complaint of pain or nausea, peripad in place CDI, no active bleed noted, pt. tolerated sips of water well, pt. ambulated to wheelchair with steady gait and no assist, no complications. Gave discharge instructions to the pt. and her ride, both verbalized understanding and had no further questions. Pt. left with all personal belongings.
--- NOTE | 2025-03-15 11:59 | ESOP_ITS ---
RE: BERNARD OCHOA : 2000 DATE OF OPERATION: 03/15/2025 PREOPERATIVE DIAGNOSES: 1. Abnormal uterine bleeding. 2. Endometrial polyp. POSTOPERATIVE DIAGNOSES: 1. Abnormal uterine bleeding. 2. Endometrial polyp. PROCEDURE PERFORMED: Hysteroscopy, MyoSure removal of endometrial polyp, and fractional dilatation and curettage. SURGEON: Wayne Avalos DO V BELT MOLD ASSEMBLER AND CURER: None. ANESTHESIA: General. ANESTHESIOLOGIST: Avni Mitchell CRNA ESTIMATED BLOOD LOSS: 5 mL. COMPLICATIONS: None. COUNTS: Correct. PATHOLOGY: 1. Endometrial polyp. 2. Endocervical curettings. 3. Endometrial curettings. FINDINGS: An endometrial polyp on the posterior right lateral aspect of the endometrial cavity. Otherwise, normal-appearing uterine cavity and endocervix. No submucous myomas. Both tubal ostia visualized. DESCRIPTION OF PROCEDURE: After proper informed consent was obtained and the patient was made aware of the risks, complications, alternatives, and benefits of the proposed procedure. She was taken to the operating room where she underwent induction of general anesthesia. She was placed in the dorsal lithotomy position. She was prepped and draped in the usual sterile fashion. A timeout was performed and the speculum was placed in the vagina. A single-tooth tenaculum was used to grasp the anterior lip of the cervix. The cervix was dilated to accommodate the 5.5 mm Omni hysteroscope. The hysteroscope was then utilized to visualize the endocervix and uterine cavity. The MyoSure reach was then utilized to remove the endometrial polyp and specimen sent to pathology. The endocervix was curetted and specimen sent to pathology. The uterine cavity was curetted and specimen sent to pathology. All instruments were removed from the uterus and the vagina. There was no bleeding at the end of the procedure. She was reversed from general anesthesia in the supine position and transferred to the recovery room in stable condition. She tolerated the procedure well. Counts were correct. I discussed with her , Alonzo, the intraoperative findings, expectations for recovery. All questions were answered. DT: 08:21:43 TT: 11:58:00 Ref: [id number] - TID: [id number]
== END 2025-03-15 09:23 | disposition home or self-care (01) ==
PROVIDERS: Referring Provider Specialist; Visit Provider Specialist
PROC: 0U5B8ZZ Destruction of Endometrium, Via Natural or Artificial Opening Endoscopic (ICD-10-PCS; CPT 58563; principal; 2025-03-15 07:30)
DX: N84.0 Polyp of corpus uteri (principal); N93.9 Abnormal uterine and vaginal bleeding, unspecified; Z01.810 Encounter for preprocedural cardiovascular examination
CPT/HCPCS: 58558; 36415; 80053; 84702; 85025; 85610; 85730; 86850; 86900; 86901; 93005; A4217; A4649; J0690; J2250; J2704; J3010; J3490; J1596

== ENCOUNTER 2025-04-18 13:09 | Emergency (ER) | payer OTHER, MEDICAID, SELFPAY ==
[2025-04-18 13:28] VITALS: BP 121/69; PULSE 64; RESP 18; TEMP 36.9; O2SAT 98
--- NOTE | 2025-04-18 13:40 | PD.EDHA ---
ED Headache RME/HPI General Chief Complaint: Dental/Oral/Throat Stated Complaint: THROAT PAIN X 4 DAYS, VOMITING, DIZZY, H/A Time Seen by Provider: 04/18/25 13:22 Source: patient Arrival date/time: 04/18/25 13:09 Mode of arrival: ambulatory Limitations: no limitations RME / HPI Complaint: headache Onset (ago): day(s) (4 days) Onset description: sudden Related Data Previous Rx's ?Medication ?Instructions ?Recorded cephalexin 500 mg capsule 500 mg PO TID #21 caps 04/18/25 Allergies Allergy/AdvReac Type Severity Reaction Status Date / Time No Known Allergies Allergy Verified 04/18/25 13:12 Review of Systems Constitutional Constitutional: Reports system reviewed and no additional complaints, except as documented Eyes Eyes: Reports system reviewed and no additional complaints, except as documented, Denies dry eyes, Denies exophthalmos and Reports floaters Cardiovascular Cardiovascular: Denies chest pain with activity and Denies claudication ED Exam General Limitations: Present no limitations General appearance: Present alert and in no apparent distress Head Head exam: Present atraumatic Eye Eye exam: Present normal appearance, PERRL and EOMI ENT ENT exam: Present normal exam, normal oropharynx and mucous membranes moist Neck Neck exam: Present normal inspection, full ROM and trachea midline Chest Chest inspection: Present normal inspection and symmetric chest wall rise Respiratory Respiratory exam: Present normal lung sounds bilaterally Cardiovascular Cardiovascular exam: Present regular rate, normal rhythm and normal heart sounds Abdominal Exam Abdominal exam: Present soft and normal bowel sounds Extremities Exam Extremities exam: Present normal inspection and full ROM Back Exam Back exam: Present normal inspection and full ROM Neurological Exam Neurological exam: Present alert and oriented X3 Psychiatric Psychiatric exam: Present normal affect and normal mood Skin Skin exam: Present warm, dry, intact and normal color Course Course Course Narrative: Patient will have a hCG, CBC, CMP, UA Quality Measures none Orders Category Date Time Status Beta HCG,Quantitative Stat Lab 04/18/25 14:59 Completed CBC Stat Lab 04/18/25 14:59 Completed Comprehensive Metabolic Panel Stat Lab 04/18/25 14:59 Completed Lipase Stat Lab 04/18/25 14:59 Completed Urinalysis Stat Lab 04/18/25 14:10 Completed Vital Signs Vital signs: Vital Signs Temperature 98.5 F 04/18/25 13:28 Pulse Rate 64 04/18/25 13:28 Respiratory Rate 18 04/18/25 13:28 Blood Pressure 121/69 04/18/25 13:28 Pulse Oximetry (%) 98 04/18/25 13:28 Oxygen Delivery Method Room Air 04/18/25 13:28 Pulse ox room air is 98% Headache MDM Narrative MDM Narrative:: Patient has WBCs in the urine and I will treat her for this. I also informed her that she was . Patient is to primary care physician for [facility] for follow-up to today's visit she should do this JASVIR. She will be discharged in no apparent distress. Patient data External records reviewed:: Other (specify) Clinical information provided by:: none Social determinants that could affect healthcare access:: none Patient has the following chronic illnesses:: None How is presenting disease/condition affected by chronic disease/condition?: no chronic disease Evaluation data The following diagnostics were reviewed and interpreted by me:: lab results (Lab results positive for urinary tract infection and ) Lab and/or radiology exams considered but not ordered:: N/A Interpretation Summary: N/A Medications / Prescriptions Medications or Prescriptions considered but not ordered:: N/A Medication administrations:: None Consultations Consultation(s) initiated? (list below): No Diagnosis Differential diagnosis headache: migraine, subarachnoid hemorrhage and meningitis Most likely diagnosis given after review of the tests above:: , UTI Admission Indicated Admission indicated?: not indicated Admission Request Was there a request for admission?: No Disposition Plan Disposition Plan: Discharge Discharge Attestation Discharge Attestation: The patient and all family members were given an opportunity to ask questions and understood the discharge instructions. Discharge instructions specifically effects, indications for sooner follow up or return to the emergency department, and the expected course of current diagnosis. Patient condition: Stable Discharge Plan Plan Patient Disposition: HOME (Self Care) Discharge Disposition comment: Patient discharged in no apparent distress Patient condition on transfer: Stable Prescriptions/Referrals Prescriptions/Med Rec: New cephalexin 500 mg capsule 500 mg PO TID Qty: 21 0RF Referrals: Cali Bernal MD [Primary Care Provider] - In 1 week Problem List Clinical Impression: Urinary tract infection, Patient/Caregiver Discharge Instructions Print Language: Luxembourgish Stand Alone Forms: Shaila Award Info., Patient Portal Info Letter PA/TOW OPERATOR Supervising Physician BRENDA/DARCY Supervising Physician: Miley
[2025-04-18 14:29] LABS: Collection Type, Urine Clean Catch
[2025-04-18 14:41] LABS: Bacteria,Urine 1+; Bilirubin,Urine Negative (Negative); Blood,Urine Negative (Negative); Clarity,Urine Turbid (Clear/Hazy); Color,Urine Yellow (Lt Yel-Yel); Glucose, Urine Negative (Negative); Ketones,Urine 4+ (Negative); Leukocyte Esterase,Urine Positive (Negative); Nitrite,Urine Negative (Negative); PH,Urine 6.5 (5.0-7.0); Protein,Urine 1+ (Neg - Trace); RBC,Urine 5 /hpf (0-3); Specific Gravity,Urine 1.037 (1.001-1.035); Squamous Epithelial Cell,Urine 14 /hpf (0-5); Urobilinogen,Urine Negative mg/dL (0.0-1.0); WBC,Urine 13 /hpf (0-5)
[2025-04-18 15:23] LABS: Basophils % (Auto) 0 % (0-2.5); Eosinophils # (Auto) 0.1 Thou/mm3 (0.0-0.5); Eosinophils % (Auto) 1 % (0-10); Hematocrit 38.2 % (36.0-46.0); Hemoglobin 13.3 g/dL (12.0-16.0); Immature Granulocytes % (Auto) 0 % (0-0); Immature Granulocytes Auto 0.02 Thou/mm3 (0.00-0.00); Lymphocytes # (Auto) 1.6 Thou/mm3 (1.0-4.8); Lymphocytes % (Auto) 21 % (10-50); Mean Corpuscular HGB Conc 34.8 g/dl (31.0-37.0); Mean Corpuscular Hemoglobin 28.5 pg (25.0-35.0); Mean Corpuscular Volume 82 fL (80-100); Monocytes # (Auto) 0.3 Thou/mm3 (0.0-0.8); Monocytes % (Auto) 4 % (0-12); Neutrophils # (Auto) 5.5 Thou/mm3 (1.8-7.7); Neutrophils % (Auto) 74 % (37-80); Nucleated Red Blood Cell % 0 /100 WBC (0); Platelet Count 198 Thou/mm3 (140-440); RDW Standard Deviation 42.2 fL (36.4-46.3); Red Blood Count 4.66 Miln/mm3 (4.00-5.20); White Blood Count 7.4 Thou/mm3 (3.6-11.0)
[2025-04-18 15:41] LABS: Alanine Aminotransferase 19 U/L (10-49); Albumin, Serum 4.7 gm/dL (3.5-5.0); Albumin/Globulin Ratio 2.1 (1.2-2.2); Alkaline Phosphatase 55 U/L (46-116); Anion Gap 10 (7-16); Aspartate Amino Transferase 19 U/L (0-34); BUN/Creatinine Ratio 11 Ratio (12-20); Bilirubin,Total 0.4 mg/dL (0.3-1.2); Blood Urea Nitrogen 8 mg/dL (9-23); Calcium 8.8 mg/dL (8.3-10.6); Calcium (Corrected) 8.8 mg/dL (8.5-10.1); Carbon Dioxide 24.4 mMol/L (20.0-31.0); Chloride 108 mMol/L (98-107); Creatinine (Component) 0.7 mg/dL (0.6-1.3); Globulin 2.2 gm/dL (2.3-3.5); Glucose 94 mg/dL (74-106); Lipase 34 U/L (12-53); Osmolality,Calculated 281 (275-295); Potassium 4.2 mMol/L (3.4-5.1); Sodium 142 mMol/L (136-145); Total Protein 6.9 gm/dL (5.7-8.2); eGFR > 60 See Note
[2025-04-18 15:52] LABS: Beta HCG,Quantitative 3115 mIU/mL (<5.0)
== END 2025-04-18 18:21 | disposition home or self-care (01) ==
PROVIDERS: Physician Assistant; Emergency Provider Emergency Medicine; PCP Family Medicine
DX: O23.40 Unspecified infection of urinary tract in pregnancy, unspecified trimester (principal)
CPT/HCPCS: 36415; 80053; 81001; 83690; 84702; 85025; 99283

== ENCOUNTER 2025-05-14 08:01 | Emergency (ER) | payer OTHER, MEDICAID, SELFPAY ==
[2025-05-14 08:02] VITALS: BMI 29.2
[2025-05-14 08:41] VITALS: BP 115/74; PULSE 96; RESP 22; TEMP 38.7; O2SAT 97; BMI 29.2
[2025-05-14 09:13] VITALS: TEMP 38.7
[2025-05-14] MEDS: ACETAMINOPHEN 500 MG TABLET 1000 MG PO (09:13)
--- NOTE | 2025-05-14 09:15 | PD.EDURI ---
Upper Respiratory Inf. RME/HPI General Chief Complaint: Flu Like Symptoms Stated Complaint: FLU SYMPTOMS X 2 DAYS Time Seen by Provider: 05/14/25 08:10 Arrival date/time: 05/14/25 08:01 This is a 24-year-old female that comes in with complaints of bodyaches, cough, congestion, sore throat, for the past 2 days. Patient states she is approximately 6 weeks . Related Data Previous Rx's ?Medication ?Instructions ?Recorded cephalexin 500 mg capsule 500 mg PO TID #21 caps 04/18/25 Allergies Allergy/AdvReac Type Severity Reaction Status Date / Time No Known Allergies Allergy Verified 05/14/25 08:02 Review of Systems Review of Systems Systems Reviewed: All systems reviewed, normal except as documented Past Medical History Past Medical History NEUROLOGIC: Negative Neurological Disorders CARDIAC: Negative Cardiac Disorders ED Exam Narrative Physical exam: VITAL SIGNS: Reviewed. GENERAL APPEARANCE: Alert and interactive, follows commands, no acute distress, HEAD AND FACE: Non-traumatic. ENT: PERRL, conjuctiva pink and clear, eyelid no trauma, Mucous membrane moist. NECK: Supple, nontender, no nuchal rigidity. CHEST: No tenderness, no crepitus, no paradoxical movement, no retractions. LUNGS: Clear, well ventilated, symmetric, no rales, no wheezing, no rhonchi, no stridor, good breath sounds bilaterally. HEART: Regular rate, regular rhythm, no murmur, no gallops. ABDOMEN: Soft, nondistended, no guarding NEUROLOGICAL: Gross motor function intact sensory function intact, Appropriate for age. MUSCULOSKELETAL: low back nontender, full range of motion. EXTREMITIES: No redness no swelling no skin breakdown on bilateral foot and leg. Distal neurovascular status intact bilateral foot SKIN: Color pink, dry, no rash, no lacerations, no abrasions, no contusions. Course Quality Measures none Orders Category Date Time Status Bedside COVID-19 Antigen Test NOW Care 05/14/25 09:00 Completed Bedside Influenza A&B Antigen Test NOW Care 05/14/25 09:01 Completed Strep A Rapid Stat Lab 05/14/25 09:37 Completed Acetaminophen Tab [Tylenol ES Tab] Med 05/14/25 09:00 Discontinued 1,000 mg PO X1 ONE Vital Signs Vital signs: Vital Signs Temperature 101.6 F H 05/14/25 08:41 Pulse Rate 96 05/14/25 08:41 Respiratory Rate 22 H 05/14/25 08:41 Blood Pressure 115/74 05/14/25 08:41 Pulse Oximetry (%) 97 05/14/25 08:41 Oxygen Delivery Method Room Air 05/14/25 08:41 Upper Respiratory Infection MDM Narrative MDM Narrative:: Patient COVID-positive. Strep negative encourage patient to get rest drink plenty of fluids take Tylenol as needed for pain and fever. Patient denies any urinary symptoms or any other symptoms other than the ones mentioned in HPI. Patient verbalizes understanding. I told patient to follow-up with primary provider in 1 to 2 days. Come back to emergency room if symptoms change or worsen. Patient data External records reviewed:: [facility] previous records Clinical information provided by:: patient Social determinants that could affect healthcare access:: none Patient has the following chronic illnesses:: none How is presenting disease/condition affected by chronic disease/condition?: no chronic disease Evaluation data The following diagnostics were reviewed and interpreted by me:: lab results Lab and/or radiology exams considered but not ordered:: none Interpretation Summary: see note Medications / Prescriptions Medications or Prescriptions considered but not ordered:: none Medication administrations:: Medication Administration History Discontinued Medications Acetaminophen (Acetaminophen 500 Mg Tablet) 1,000 mg PO X1 ONE Stop: 05/14/25 09:01 Last Admin: 05/14/25 09:13 Dose: 1,000 mg Documented By: ER see mar Consultations Consultation(s) initiated? (list below): No Diagnosis Upper Respiratory Differential Diagnosis: upper respiratory infection, sinusitis, viral infection, influenza and other (COVID-19) Most likely diagnosis given after review of the tests above:: covid 19 Admission Indicated Admission indicated?: not indicated Admission Request Was there a request for admission?: No Disposition Plan Disposition Plan: Discharge Discharge Attestation Discharge Attestation: The patient and all family members were given an opportunity to ask questions and understood the discharge instructions. Discharge instructions specifically effects, indications for sooner follow up or return to the emergency department, and the expected course of current diagnosis. Patient condition: Stable Discharge Plan Plan Patient Disposition: HOME (Self Care) Patient condition on transfer: Stable Prescriptions/Referrals Prescriptions/Med Rec: No Action cephalexin 500 mg capsule 500 mg PO TID Qty: 21 0RF Referrals: Deion Luo MD [Primary Care Provider] - In 1 week Problem List Clinical Impression: COVID-19, Fever Patient/Caregiver Discharge Instructions Discharge Activity: activity as tolerated Education Materials: 2019-nCoV Additional Instructions: Follow up with primary provider in 1-2 days. Come back to ED if symptoms change or worsen Print Language: Vietnamese Stand Alone Forms: Shaila Award Info., Patient Portal Info Letter PA/AFFILIATE MARKETING SPECIALIST Supervising Physician PA/AFFILIATE MARKETING SPECIALIST Supervising Physician: DEMETRI
[2025-05-14 10:07] LABS: Strep A Rapid Negative (Negative)
[2025-05-14 10:10] VITALS: BP 118/80; PULSE 88; RESP 20; TEMP 37.2; O2SAT 98
== END 2025-05-14 10:10 | disposition home or self-care (01) ==
PROVIDERS: Nurse Practitioner Family; Emergency Provider Emergency Medicine; PCP Family Medicine
DX: O98.511 Other viral diseases complicating pregnancy, first trimester (principal); U07.1 COVID-19; Z3A.01 Less than 8 weeks gestation of pregnancy
CPT/HCPCS: 81001; 81025; 87400; 87651; 87811; 99283; A9270

== ENCOUNTER 2025-07-07 09:29 | Outpatient (AMB) | payer OTHER, MEDICAID, SELFPAY ==
[2025-07-07 09:52] VITALS: BP 119/74; PULSE 64; RESP 14; TEMP 36.6; O2SAT 98; BMI 29.7
--- NOTE | 2025-07-07 09:52 | OBCLNT_ITS ---
Vital Signs 07/07/25 09:52 Height 1.6 m Height Method Stated Weight 76.204 kg Weight Measurement Method Standing Scale BMI 29.7 BP 119/74 Blood Pressure Source Automatic Cuff Blood Pressure Location Left Upper Arm Position Sitting Respiration 14 Pulse 64 Pulse Source Monitor Temp 97.8 F Temp Source Oral Pulse Oximetry (%) 98 Oxygen Delivery Method Room Air Allergies/Home Meds Allergies & Medications Allergies No Known Allergies Allergy (Verified 07/07/25 09:53) Medication Reconciliation cephalexin 500 mg capsule 500 mg PO TID #21 caps 04/18/25 [Rx Confirmed 07/07/25] Intake Visit Data Collection New Patient or Established: Established Patient (seen at [facility] within 3 years) Reason for Visit:: INITIAL Seen by Clinical Staff ONLY (RN/MA): No 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 1. Little interest or pleasure in doing things: not at all 2. Feeling down, depressed, or hopeless: not at all Total score: 0 PHQ-9 3. Trouble falling or staying asleep, or sleeping too much: Not at all 4. Feeling tired or having little energy: Not at all 5. Poor appetite or overeating: Not at all 6. Feeling bad about yourself - or that you are a failure or have let yourself or your family down: Not at all 7. Trouble concentrating on things, such as reading the newspaper or watching television: Not at all 8. Moving or speaking so slowly that other people could have noticed? - Or the opposite - being so fidgety or restless that you have been moving around a lot more than usual: not at all 9. Thoughts that you would be better off or of hurting yourself in some way: Not at all Total score: 0 Source: Developed by Drs. Lorenzo Cohen, Monserrat Walters, Ankit Montes and colleagues, with an educational emma from [employer]. Depression screen completed yes Social History Living Situation History Housing: Apartment Tobacco History Smoking Status: Never smoker Second Hand Smoke Exposure: No Alcohol History Alcohol Intake: Never Domestic Abuse History Do You Feel Safe at Home: Yes History of Present Illness HPI Narrative 24-year-old 3 para 1 for OBI. Patient had started care at [facility] and then was told to transfer care. She history of no dates. Patient has irregular menses. She thinks her last period was December 17, 2024. First ultrasound May 16, 2025. Patient was 9 weeks. And this gives due date December 19, 2025. Patient denies social habits. And denies any existence of chronic illness. She has history of a cervical polyp removed. An appendectomy in 2019. Denies leaking, denies bleeding, denies cramping. Reports slight movement. Patient and partner are very happy with the . Cystic fibrosis screen and spinal muscular atrophy were negative. Patient's drug screen was negative. Patient had a UTI that was treated with Macrobid. GC and Chlamydia were negative. Hemoglobin is 13 crit 41. Normal platelets. RPR was nonreactive. Rubella nonimmune. Patient is O+, antibody screen negative, hep C negative, hepatitis B negative and HIV negative. 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 Patient has no dates. First ultrasound May 16, 2025. Patient was 9 weeks. EDC December 19, 2025. Denies leaking, denies bleeding, denies contractions. Positive movement. Patient is taking vitamins. NIPT and AFP today. Schedule ultrasound with Dr. Brown for [facility] sono. Anatomy scan. Discussed labor precautions. Continue vitamins. Increase fluids. Return in 4 weeks OB check Menstrual History Menstrual reliability: definite Flow: normal Menstrual regularity: regular Monthly: Yes Age at menarche: 10 On control pills at conception: No Associated symptoms (LMP): Reports nausea, fatigue, breast tenderness and bloating OB History : 3 Para: 1 Hx Total # of Abortions (Spontaneous & Elective): 1 # of Living Children: 1 Delivery History 1st : Child's name: SONIA date: 03/19/20 sex: female Gestational age at delivery (weeks): 40 Delivery type: vaginal Delivery complications: NONE History of depression before or after : No Infection History & Risk Evaluation History of STDs: none Genetic Screening & History Genetic Screening/Teratology Counseling - Includes patient, baby's father, or anyone in either family with: 1. Patient's age 35 years or older as of estimated date of delivery: No 2. Thalassemia (Faroese, Dominican, Mediterranean, or Background); MCV less than 80: No 3. Neural Tube Defect (Meningomyelocele, Spina Bifida, or Anencephaly): No 4. Congenital Heart Defect: No 5. Down Syndrome: No 6. Mayur-Sachs (Ashkenazi Worship, Cajun, German Marfa): No 7. Mandy Disease (Ashkenazi Worship): No 8. Familial Dysautonomia (Ashkenazi Worship): No 9. Sickle Cell Disease or Trait (): No 10. Hemophilia or other blood disorders: No 11. Muscular Dystrophy: No 12. Cystic Fibrosis: No 13. Glen's Chorea: No 14. Mental Retardation/Autism: No 15. Other inherited genetic or chromosomal disorder: No 16. Maternal Metabolic Disorder (EG,TYPE 1 Diabetes, PKU): No 17. Patient or baby's father had a child with defects not listed above: No 18. Recurrent loss or a stillbirth: No 19. Medications (including supplements, vitamins, herbs or otc drugs)/illicit/recreational drugs/alcohol since last menstrual period: No 20. Any other: No Infection History 1. Live with someone with TB or exposed to TB: No 2. Rash or viral illness since last menstrual period: No 3. Hepatitis B,C: No Other (see comments) Source: [employer] Review of Systems Review of Systems Systems Reviewed: All systems reviewed, normal except as documented Constitutional Constitutional: Reports fatigue Gastrointestinal Gastrointestinal: Reports bloating and Reports nausea Endocrine Endocrine: Reports fatigue Exam General Limitations: no limitations General Appearance: alert, in no apparent distress, comfortable, cooperative, healthy appearing, well developed and well groomed Head Head exam: atraumatic, normocephalic and normal inspection Neck Neck exam: Present normal inspection, full ROM and trachea midline Chest Chest inspection: Present normal inspection and symmetric chest wall rise Resp Respiratory exam: Present normal lung sounds bilaterally Card Cardiovascular exam: Present regular rate, normal rhythm and normal heart sounds Abdominal Abdominal exam: Present soft and normal bowel sounds Psych Psychiatric exam: Present normal affect and normal mood Office Procedures OB Clinic LOC & Office Proc's Nursing/Assessment Patient Status: Established Patient OB Clinic Nursing Assessment: Medication Reconciliation, Update PMH in EMR and Vital Signs OB Clinic Coordination of Care: Complex Care and Chronic Disease 1-5, Consent,records obtained, informed consent, Education Simp Pt/Fam, 1 Ins Authorization, Lab and Imaging orders, Results/Orders obtained and Staff clarify orders Special Needs: Heart tones Established Patient Charge Established Patient Point Assignment: 150 Established Patient Point Charge: EP Level 4 (120-155) Assessment & Plan Diagnosis / Problem List (1) Encounter for supervision of high risk in second trimester, antepartum: Status: Acute Plan NIPT and AFP today. Schedule appointment with Dr. Brown for anatomy scan. Discussed labor precautions. Discussed danger signs symptoms. Increase fluids. Continue prenatals. Return in 4 weeks OB Additional Plan Follow Up: 4 Weeks (obc)
== END 2025-07-07 10:21 | disposition home or self-care (01) ==
LOC: HODSOBC 09:29
PROVIDERS: PCP Family Medicine; Referring Provider Family Medicine; Supervising Provider Advanced Practice Midwife; Visit Provider Advanced Practice Midwife
DX: O09.92 Supervision of high risk pregnancy, unspecified, second trimester (principal); Z3A.16 16 weeks gestation of pregnancy
CPT/HCPCS: 99214; G0463

== ENCOUNTER 2025-08-11 08:45 | Outpatient (AMB) | payer OTHER, MEDICAID, SELFPAY ==
[2025-08-11 08:49] VITALS: BP 108/65; PULSE 68; RESP 16; TEMP 36.2; O2SAT 98; BMI 30.2
--- NOTE | 2025-08-11 08:49 | OBCLNT_ITS ---
Vital Signs 08/11/25 08:49 Height 1.6 m Height Method Stated Weight 77.337 kg Weight Measurement Method Standing Scale BMI 30.2 BP 108/65 Blood Pressure Source Automatic Cuff Blood Pressure Location Left Upper Arm Position Sitting Respiration 16 Pulse 68 Pulse Source Monitor Temp 97.2 F Temp Source Oral Pulse Oximetry (%) 98 Oxygen Delivery Method Room Air Allergies/Home Meds Allergies & Medications Allergies No Known Allergies Allergy (Verified 08/11/25 08:50) Medication Reconciliation cephalexin 500 mg capsule 500 mg PO TID #21 caps 04/18/25 [Rx Confirmed 08/11/25] Intake Visit Data Collection New Patient or Established: Established Patient (seen at [facility] within 3 years) Reason for Visit:: OB Seen by Clinical Staff ONLY (RN/MA): No Brush Cleaner Required: No Do You Feel Safe at Home: Yes Authorities Contacted: N/A PCP or OBGYN visit in last 3 months: Yes Hx Now: Yes Are you currently on any form of Control: No Pain Present Currently: No Pain Scale Used: Austin-Jamil/Numerical Pain scale:: 0 Smoking Status Smoking Status: Never smoker Questionnaires Covid-19 Vaccine Questionnaire Has patient been vacinated for Covid-19 Have you been vacinated for Covid-19: No PHQ-9 PHQ-2 Over the last 2 weeks, how often have you been bothered by any of the following problems? 1. Little interest or pleasure in doing things: not at all 2. Feeling down, depressed, or hopeless: not at all Total score: 0 PHQ-9 3. Trouble falling or staying asleep, or sleeping too much: Not at all 4. Feeling tired or having little energy: Not at all 5. Poor appetite or overeating: Not at all 6. Feeling bad about yourself - or that you are a failure or have let yourself or your family down: Not at all 7. Trouble concentrating on things, such as reading the newspaper or watching television: Not at all 8. Moving or speaking so slowly that other people could have noticed? - Or the opposite - being so fidgety or restless that you have been moving around a lot more than usual: not at all 9. Thoughts that you would be better off or of hurting yourself in some way: Not at all Total score: 0 If you checked off any problems, how difficult have these problems made it for you to do your work, take care of things at home, or get along with other people?: not difficult at all Source: Developed by Drs. Lorenzo Cohen, Monserrat Walters, Ankit Montes and colleagues, with an educational emma from [employer]. 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 Patient has no dates. First ultrasound May 16, 2025. Patient was 9 weeks. EDC December 19, 2025. Denies leaking, denies bleeding, denies contractions. Positive movement. Patient is taking vitamins. NIPT and AFP today. Schedule ultrasound with Dr. Brown for [facility] sono. Anatomy scan. Discussed labor precautions. Continue vitamins. Increase fluids. Return in 4 weeks OB check VANIA Calculator Estimated Delivery Date Method Current WG Current Estimate 12/19/25 Ultrasound #1 21w 3d Other Estimates 09/23/25 LMP (Uncertain) 33w 6d Notes Visit Date: 07/07/25 Last Updated by: Jania Arias CNM 24-year-old 3 para 1. Last. December 17, 2024. Patient has no dates. First ultrasound May 16, 2025, patient was 9 weeks. EDC December 19, 2025. O+, antibody screen negative, RPR nonreactive, rubella nonimmune, hepatitis B negative, HIV negative, hep C negative, GC and Chlamydia negative. U tox negative. SMA/CF negative. Office Procedures OBC Clinic LOC & Office Proc's Nursing/Assessment Patient Status: Established Patient OB Clinic Nursing Assessment: Medication Reconciliation, Update PMH in EMR and Vital Signs OB Clinic Coordination of Care: Education Complex Pt/Fam, Consent,records obtained, informed consent, Lab and Imaging orders, Results/Orders obtained and Staff clarify orders Special Needs: Heart tones Established Patient Charge Established Patient Point Assignment: 115 Established Patient Point Charge: EP Level 3 (80-115) Assessment & Plan Diagnosis / Problem List (1) Encounter for supervision of high risk in second trimester, antepartum: Status: Acute Plan Maternal- medicine sono pending. Note for work to allow for decreased exposure to secondhand smoke. Discussed labs. SAB precautions. Return in 4 weeks OB check
== END 2025-08-11 09:21 | disposition home or self-care (01) ==
LOC: HODSOBC 08:45
PROVIDERS: Supervising Provider Advanced Practice Midwife; Visit Provider Advanced Practice Midwife
DX: O09.92 Supervision of high risk pregnancy, unspecified, second trimester (principal); Z3A.21 21 weeks gestation of pregnancy
CPT/HCPCS: 99213; G0463

== ENCOUNTER 2025-09-08 09:19 | Outpatient (AMB) | payer OTHER, MEDICAID, SELFPAY ==
[2025-09-08 09:27] VITALS: BP 108/69; PULSE 69; RESP 18; TEMP 36.2; O2SAT 98; BMI 31.0
--- NOTE | 2025-09-08 09:27 | OBCLNT_ITS ---
Vital Signs 09/08/25 09:27 Height 1.6 m Height Method Stated Weight 79.379 kg Weight Measurement Method Standing Scale BMI 31.0 BP 108/69 Blood Pressure Source Automatic Cuff Blood Pressure Location Left Upper Arm Position Sitting Respiration 18 Pulse 69 Pulse Source Monitor Temp 97.2 F Temp Source Oral Pulse Oximetry (%) 98 Oxygen Delivery Method Room Air Allergies/Home Meds Allergies & Medications Allergies No Known Allergies Allergy (Verified 09/08/25 09:29) Medication Reconciliation cephalexin 500 mg capsule 500 mg PO TID #21 caps 04/18/25 [Rx Confirmed 09/08/25] Intake Visit Data Collection New Patient or Established: Established Patient ([place] [facility] [place]) Reason for Visit:: OBC Seen by Clinical Staff ONLY (RN/MA): No Bookkeeping Clerk Required: No Do You Feel Safe at Home: Yes Authorities Contacted: N/A PCP or OBGYN visit in last 3 months: Yes Date of Last PCP or OBGYN visit: 08/11/25 Hx Now: Yes Are you currently on any form of Control: No Pain Present Currently: No Pain Scale Used: Austin-Jamil/Numerical Pain scale:: 0 Smoking Status Smoking Status: Never smoker Immunizations Flu Vaccine in the Last 12 Months: No Flu Vaccine Exclusion Criteria: No Exclusion Criteria Questionnaires Covid-19 Vaccine Questionnaire Has patient been vacinated for Covid-19 Have you been vacinated for Covid-19: No PHQ-9 PHQ-2 Over the last 2 weeks, how often have you been bothered by any of the following problems? 1. Little interest or pleasure in doing things: not at all 2. Feeling down, depressed, or hopeless: not at all Total score: 0 PHQ-9 3. Trouble falling or staying asleep, or sleeping too much: Not at all 4. Feeling tired or having little energy: Not at all 5. Poor appetite or overeating: Not at all 6. Feeling bad about yourself - or that you are a failure or have let yourself or your family down: Not at all 7. Trouble concentrating on things, such as reading the newspaper or watching television: Not at all 8. Moving or speaking so slowly that other people could have noticed? - Or the opposite - being so fidgety or restless that you have been moving around a lot more than usual: not at all 9. Thoughts that you would be better off or of hurting yourself in some way: Not at all Total score: 0 If you checked off any problems, how difficult have these problems made it for you to do your work, take care of things at home, or get along with other people?: not difficult at all Source: Developed by Drs. Lorenzo Cohen, Monserrat Walters, Ankit Montes and colleagues, with an educational emma from [employer]. 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 Patient has no dates. First ultrasound May 16, 2025. Patient was 9 weeks. EDC December 19, 2025. Denies leaking, denies bleeding, denies contractions. Positive movement. Patient is taking vitamins. NIPT and AFP today. Schedule ultrasound with Dr. Brown for [facility] sono. Anatomy scan. Discussed labor precautions. Continue vitamins. Increase fluids. Return in 4 weeks OB check 08/11/25 -?-?-?-?-?-?-?-?-?-?-?-?- 21w 3d 77.337 kg 108/65 absent unknown 20 145 active Denies SAB complaints. Reports movement. Patient works at the [employer] and is exposed to heavy secondhand smoke. Maternal- medicine sono pending MFM appointment pending scheduling. Note for work to allow for decreased exposure to secondhand smoke. Discussed labs. SAB precautions. Return in 4 weeks 09/08/25 -?-?-?-?-?-?-?-?-?-?-?-?- 25w 3d 79.379 kg 108/69 absent unknown 25 143 active f/u mfm sono in 3-4 week, fetus active, no OB complaints, no bleeding or leaking. no PTL complaints 3rd tri lab, discuss ptl precaution. continue PNV, rtc 4 week VANIA Calculator Estimated Delivery Date Method Current WG Current Estimate 12/19/25 Ultrasound #1 25w 3d Other Estimates 09/23/25 LMP (Uncertain) 37w 6d 12/19/25 Ultrasound #2 25w 3d 12/19/25 Manual 25w 3d final VANIA: Notes Visit Date: 09/08/25 Last Updated by: Jania Arias CNM sono: 08/12. IUP 21w4, 50%, pyelectasia L kidney(4.5mm) Visit Date: 08/11/25 Last Updated by: Jania Arias CNM 08/11: nipt: negative/girl Visit Date: 07/07/25 Last Updated by: Jania Arias CNM 24-year-old 3 para 1. Last. December 17, 2024. Patient has no dates. First ultrasound May 16, 2025, patient was 9 weeks. EDC December 19, 2025. O+, antibody screen negative, RPR nonreactive, rubella nonimmune, hepatitis B negative, HIV negative, hep C negative, GC and Chlamydia negative. U tox negative. SMA/CF negative. Office Procedures OBC Clinic LOC & Office Proc's Nursing/Assessment Patient Status: Established Patient OB Clinic Nursing Assessment: Medication Reconciliation, Update PMH in EMR and Vital Signs OB Clinic Coordination of Care: Consent,records obtained, informed consent, Education Simp Pt/Fam, Lab and Imaging orders and Staff clarify orders Special Needs: Heart tones Established Patient Charge Established Patient Point Assignment: 105 Established Patient Point Charge: EP Level 3 (80-115) Assessment & Plan Diagnosis / Problem List (1) Encounter for supervision of high risk in second trimester, antepartum: Status: Acute Plan discuss PTL precaution and s/s, continue PNV, f/u mfm in 3-4wk. 3rd tri lab. RTC 4 week OBC Additional Plan Follow Up: 4 Weeks (obc)
== END 2025-09-08 10:29 | disposition home or self-care (01) ==
LOC: HODSOBC 09:19
PROVIDERS: Supervising Provider Advanced Practice Midwife; Visit Provider Advanced Practice Midwife
DX: O09.92 Supervision of high risk pregnancy, unspecified, second trimester (principal); Z3A.25 25 weeks gestation of pregnancy
CPT/HCPCS: 99213; G0463

== ENCOUNTER 2025-10-06 08:36 | Outpatient (AMB) | payer MEDICAID, SELFPAY ==
[2025-10-06 09:00] VITALS: BP 115/69; PULSE 63; RESP 14; TEMP 36.6; O2SAT 98; BMI 31.4
--- NOTE | 2025-10-06 09:00 | AMB.OBPNC ---
Vital Signs 10/06/25 09:00 Height 1.6 m Height Method Stated Weight 80.343 kg Weight Measurement Method Standing Scale BMI 31.4 BP 115/69 Blood Pressure Source Automatic Cuff Blood Pressure Location Left Upper Arm Position Sitting Respiration 14 Pulse 63 Pulse Source Monitor Temp 97.8 F Temp Source Oral Pulse Oximetry (%) 98 Oxygen Delivery Method Room Air Allergies/Home Meds Allergies & Medications Allergies No Known Allergies Allergy (Verified 10/06/25 09:01) Immunizations Immunizations Flu Vaccine in the Last 12 Months: No Flu Vaccine Exclusion Criteria: Refused by Patient Care OB Visit Log OB Flowsheet Initial Weight: Not Recorded Date <del>?</del> EGA Weight BP Alb Glu CTX Pres Fundal ht FHR Mov Dilation Station Effacement Hx Notes Visit Note 07/07/25 <del>?</del> 16w 3d 76.204 kg 119/74 absent unknown 16 145 active 24-year-old 3 para 1 for OBI. Patient has no dates. First ultrasound May 16, 2025. Patient was 9 weeks. EDC December 19, 2025. Denies leaking, denies bleeding, denies contractions. Positive movement. Patient is taking vitamins. NIPT and AFP today. Schedule ultrasound with Dr. Brown for [facility] sono. Anatomy scan. Discussed labor precautions. Continue vitamins. Increase fluids. Return in 4 weeks OB check 08/11/25 <del>?</del> 21w 3d 77.337 kg 108/65 absent unknown 20 145 active Denies SAB complaints. Reports movement. Patient works at the [employer] and is exposed to heavy secondhand smoke. Maternal- medicine sono pending MFM appointment pending scheduling. Note for work to allow for decreased exposure to secondhand smoke. Discussed labs. SAB precautions. Return in 4 weeks 09/08/25 <del>?</del> 25w 3d 79.379 kg 108/69 absent unknown 25 143 active f/u mfm sono in 3-4 week, fetus active, no OB complaints, no bleeding or leaking. no PTL complaints 3rd tri lab, discuss ptl precaution. continue PNV, rtc 4 week 10/06/25 <del>?</del> 29w 3d 80.343 kg 115/69 absent unknown 29 143 active Requesting DMV parking permit due to . Patient walks several blocks in the mud and is slipping and difficult to make it to the job site. Reports movement. Denies leaking, bleeding or contractions. Follow-up MFM in 6 weeks TDAP TDAP. Keep appointment for MFM in 5 to 6 weeks for follow-up sono. Discussed doing DMV parking permit due to . Discussed labor precautions. And follow-up in 3 weeks OB check VANIA Calculator Estimated Delivery Date Method Current WG Current Estimate 12/19/25 Ultrasound #1 29w 3d Other Estimates 09/23/25 LMP (Uncertain) 41w 6d 12/19/25 Ultrasound #2 29w 3d 12/19/25 Manual 29w 3d final VANIA: 12/19/25 Notes Visit Date: 10/06/25 Last Updated by: Jania Arias CNM 10/06: 3rd tri labs Visit Date: 09/08/25 Last Updated by: Jania Arias CNM sono: 08/12. IUP 21w4, 50%, pyelectasia L kidney(4.5mm) Visit Date: 08/11/25 Last Updated by: Jania Arias CNM 08/11: nipt: negative/girl Visit Date: 07/07/25 Last Updated by: Jania Arias CNM 24-year-old 3 para 1. Last. December 17, 2024. Patient has no dates. First ultrasound May 16, 2025, patient was 9 weeks. EDC December 19, 2025. O+, antibody screen negative, RPR nonreactive, rubella nonimmune, hepatitis B negative, HIV negative, hep C negative, GC and Chlamydia negative. U tox negative. SMA/CF negative. Office Procedures [facility] Clinic LOC & Office Proc's Nursing/Assessment Patient Status: Established Patient OB Clinic Nursing Assessment: Medication Reconciliation, Update PMH in EMR and Vital Signs OB Clinic Coordination of Care: Complex Care and Chronic Disease 1-5, Consent,records obtained, informed consent, Education Simp Pt/Fam, 1 Ins Authorization, Lab and Imaging orders, Results/Orders obtained and Staff clarify orders Special Needs: Heart tones Established Patient Charge Established Patient Point Assignment: 150 Established Patient Point Charge: EP Level 4 (120-155) Injection/Vaccine Admin SQ Im Injection: Yes Immunizations diphth,pertus(acell),tetanus 2.5 Lf unit-8 mcg-5 Lf/0.5mL IM syringe Performing Provider: Jania Arias CNM Performing Location: [facility] Administered by: Harleen Flower MA on 10/06/25 09:25 Dose Route Admin Location Dispensed Lot Number Expiration Date Package NDC NDC [employer] 0.5 mL IM Right Deltoid 0.5 mL [id number] 02/11/28 03503-718-77 [id number] [employer] VIS Given Date VIS Provided VIS Publication Date 10/06/25 Single Vaccine 24 Eligibility Eligibility Date Funding Source Public Non-[facility] Assessment & Plan Diagnosis / Problem List (1) Encounter for supervision of high risk in third trimester, antepartum: Status: Acute Plan Gave information on DMV parking pass. Discussed third trimester labs is normal. Keep appointment in 5 to 6 weeks with MFM. Discussed labor precautions and return in 3 weeks OB check Additional Plan Follow Up: 3 Weeks (obc)
== END 2025-10-06 09:20 | disposition home or self-care (01) ==
LOC: HODSOBC 08:36
PROVIDERS: Supervising Provider Advanced Practice Midwife; Visit Provider Advanced Practice Midwife
DX: O09.93 Supervision of high risk pregnancy, unspecified, third trimester (principal); Z3A.29 29 weeks gestation of pregnancy; Z23 Encounter for immunization
CPT/HCPCS: 90471; 90715; 96372; 99214; G0463

== ENCOUNTER 2025-10-27 09:17 | Outpatient (AMB) | payer BC, MEDICAID, SELFPAY ==
[2025-10-27 09:46] VITALS: BP 115/69; PULSE 69; RESP 18; TEMP 36.7; O2SAT 98; BMI 31.8
--- NOTE | 2025-10-27 09:46 | OBCLNT_ITS ---
Vital Signs 10/27/25 09:46 Height 1.6 m Height Method Stated Weight 81.42 kg Weight Measurement Method Standing Scale BMI 31.8 BP 115/69 Blood Pressure Source Automatic Cuff Blood Pressure Location Right Upper Arm Position Sitting Respiration 18 Pulse 69 Pulse Source Monitor Temp 98.1 F Temp Source Temporal Artery Scan Pulse Oximetry (%) 98 Oxygen Delivery Method Room Air Allergies/Home Meds Allergies & Medications Allergies No Known Allergies Allergy (Verified 10/27/25 09:47) Medication Reconciliation No Known Home Medications 10/27/25 [History Confirmed 10/27/25] Immunizations Immunizations Flu Vaccine in the Last 12 Months: No Flu Vaccine Exclusion Criteria: No Exclusion Criteria Care OB Visit Log OB Flowsheet Initial Weight: Not Recorded Date -?-?-?-?-?-?-?-?-?-?-?-?- EGA Weight BP Alb Glu CTX Pres Fundal ht FHR Mov Dilation Station Effacement Hx Notes Visit Note 07/07/25 -?-?-?-?-?-?-?-?-?-?-?-?- 16w 3d 76.204 kg 119/74 absent unknown 16 145 active 24-year-old 3 para 1 for OBI. Patient has no dates. First ultrasound May 16, 2025. Patient was 9 weeks. EDC December 19, 2025. Denies leaking, denies bleeding, denies contractions. Positive movement. Patient is taking vitamins. NIPT and AFP today. Schedule ultrasound with Dr. Brown for [facility] sono. Anatomy scan. Discussed labor precautions. Continue vitamins. Increase fluids. Return in 4 weeks OB check 08/11/25 -?-?-?-?-?-?-?-?-?-?-?-?- w 3d 77.337 kg 108/65 absent unknown 20 145 active Denies SAB complaints. Reports movement. Patient works at the [employer] and is exposed to heavy secondhand smoke. Maternal- medicine sono pending [facility] appointment pending scheduling. Note for work to allow for decreased exposure to secondhand smoke. Discussed labs. SAB precautions. Return in 4 weeks 09/08/25 -?-?-?-?-?-?-?-?-?-?-?-?- w 3d 79.379 kg 108/69 absent unknown 25 143 active f/u mfm sono in 3-4 week, fetus active, no OB complaints, no bleeding or leaking. no PTL complaints 3rd tri lab, discuss ptl precaution. continue PNV, rtc 4 week 10/06/25 -?-?-?-?-?-?-?-?-?-?-?-?- 29w 3d 80.343 kg 115/69 absent unknown 29 143 active Requesting DMV parking permit due to . Patient walks several blocks in the mud and is slipping and difficult to make it to the job site. Reports movement. Denies leaking, bleeding or contractions. Follow-up MFM in 6 weeks TDAP TDAP. Keep appointment for MFM in 5 to 6 weeks for follow-up sono. Discussed doing DMV parking permit due to . Discussed labor precautions. And follow-up in 3 weeks OB check 10/27/25 -?-?-?-?-?-?-?-?-?-?-?-?- 32w 3d 81.42 kg 115/69 absent cephalic 32 145 active Reports movement. Denies any signs or symptoms of labor. No leaking or bleeding. Maternal- medicine sonogram in 2 weeks Kick count twice a day. Continue prenatals. Reviewed danger signs symptoms and ER precautions. We discussed labor precautions VANIA Calculator Estimated Delivery Date Method Current WG Current Estimate 12/19/25 Ultrasound #1 32w 3d Other Estimates 09/23/25 LMP (Uncertain) 44w 6d 12/19/25 Ultrasound #2 32w 3d 12/19/25 Manual 32w 3d final VANIA: Notes Visit Date: 10/06/25 Last Updated by: Jania Arias CNM 10/06: 3rd tri labs Visit Date: 09/08/25 Last Updated by: Jania Arias CNM sono: 08/12. IUP 21w4, 50%, pyelectasia L kidney(4.5mm) Visit Date: 08/11/25 Last Updated by: Jania Arias CNM 08/11: nipt: negative/girl Visit Date: 07/07/25 Last Updated by: Jania Arias CNM 24-year-old 3 para 1. Last. December 17, 2024. Patient has no dates. First ultrasound May 16, 2025, patient was 9 weeks. EDC December 19, 2025. O+, antibody screen negative, RPR nonreactive, rubella nonimmune, hepatitis B negative, HIV negative, hep C negative, GC and Chlamydia negative. U tox negative. SMA/CF negative. Office Procedures [facility]BC Clinic LOC & Office Proc's Nursing/Assessment Patient Status: Established Patient OB Clinic Nursing Assessment: Medication Reconciliation, Update PMH in EMR and Vital Signs OB Clinic Coordination of Care: Complex Care and Chronic Disease 1-5, Education Complex Pt/Fam, Consent,records obtained, informed consent, Lab and Imaging orders, Results/Orders obtained and Staff clarify orders Special Needs: Heart tones Established Patient Charge Established Patient Point Assignment: 140 Established Patient Point Charge: EP Level 4 (120-155) Assessment & Plan Diagnosis / Problem List (1) Encounter for supervision of high risk in third trimester, antepartum: Status: Acute Plan Patient declined flu vaccine. Discussed labor precautions. Kick count twice a day. Continue prenatals. Follow-up with maternal- medicine in 2 weeks. Return in 2 weeks OB check Additional Plan Follow Up: 2 Weeks (obc)
== END 2025-10-27 10:05 | disposition home or self-care (01) ==
LOC: HODSOBC 09:17
PROVIDERS: Supervising Provider Advanced Practice Midwife; Visit Provider Advanced Practice Midwife
DX: O09.93 Supervision of high risk pregnancy, unspecified, third trimester (principal); Z3A.32 32 weeks gestation of pregnancy; Z28.21 Immunization not carried out because of patient refusal
CPT/HCPCS: 99214; G0463

== ENCOUNTER 2025-11-11 08:44 | Outpatient (AMB) | payer BC, MEDICAID, SELFPAY ==
[2025-11-11 08:52] VITALS: BP 100/61; PULSE 63; RESP 18; TEMP 36.7; O2SAT 97; BMI 32.3
--- NOTE | 2025-11-11 08:52 | OBCLNT_ITS ---
Vital Signs 11/11/25 08:52 Height 1.6 m Height Method Stated Weight 82.724 kg Weight Measurement Method Standing Scale BMI 32.3 BP 100/61 Blood Pressure Source Automatic Cuff Blood Pressure Location Right Upper Arm Position Sitting Respiration 18 Pulse 63 Pulse Source Monitor Temp 98.0 F Temp Source Temporal Artery Scan Pulse Oximetry (%) 97 Oxygen Delivery Method Room Air Allergies/Home Meds Allergies & Medications Allergies No Known Allergies Allergy (Verified 11/11/25 08:52) Medication Reconciliation No Known Home Medications 10/27/25 [History Confirmed 11/11/25] Immunizations Immunizations Flu Vaccine in the Last 12 Months: No Flu Vaccine Exclusion Criteria: No Exclusion Criteria Care OB Visit Log OB Flowsheet Initial Weight: Not Recorded Date -?-?-?-?-?-?-?-?-?-?-?-?- EGA Weight BP Alb Glu CTX Pres Fundal ht FHR Mov Dilation Station Effacement Hx Notes Visit Note 07/07/25 -?-?-?-?-?-?-?-?-?-?-?-?- 16w 3d 76.204 kg 119/74 absent unknown 16 145 active 24-year-old 3 para 1 for OBI. Patient has no dates. First ultrasound May 16, 2025. Patient was 9 weeks. EDC December 19, 2025. Denies leaking, denies bleeding, denies contractions. Positive movement. Patient is taking vitamins. NIPT and AFP today. Schedule ultrasound with Dr. Brown for [facility] sono. Anatomy scan. Discussed labor precautions. Continue vitamins. Increase fluids. Return in 4 weeks OB check 08/11/25 -?-?-?-?-?-?-?-?-?-?-?-?- w 3d 77.337 kg 108/65 absent unknown 20 145 active Denies SAB complaints. Reports movement. Patient works at the [employer] and is exposed to heavy secondhand smoke. Maternal- medicine sono pending [facility] appointment pending scheduling. Note for work to allow for decreased exposure to secondhand smoke. Discussed labs. SAB precautions. Return in 4 weeks 09/08/25 -?-?-?-?-?-?-?-?-?-?-?-?- w 3d 79.379 kg 108/69 absent unknown 25 143 active f/u mfm sono in 3-4 week, fetus active, no OB complaints, no bleeding or leaking. no PTL complaints 3rd tri lab, discuss ptl precaution. continue PNV, rtc 4 week 10/06/25 -?-?-?-?-?-?-?-?-?-?-?-?- 29w 3d 80.343 kg 115/69 absent unknown 29 143 active Requesting DMV parking permit due to . Patient walks several blocks in the mud and is slipping and difficult to make it to the job site. Reports movement. Denies leaking, bleeding or contractions. Follow-up MFM in 6 weeks TDAP TDAP. Keep appointment for MFM in 5 to 6 weeks for follow-up sono. Discussed doing DMV parking permit due to . Discussed labor precautions. And follow-up in 3 weeks OB check 10/27/25 -?-?-?-?-?-?-?-?-?-?-?-?- 32w 3d 81.42 kg 115/69 absent cephalic 32 145 active Reports movement. Denies any signs or symptoms of labor. No leaking or bleeding. Maternal- medicine sonogram in 2 weeks Kick count twice a day. Continue prenatals. Reviewed danger signs symptoms and ER precautions. We discussed labor precautions 11/11/25 -?-?-?-?-?-?-?-?-?-?-?-?- 34w 4d 82.724 kg 100/61 absent cephalic 34 145 active Reports good movement. Denies leaking, bleeding, contractions. GBS and disability next visit. Discussed labor precautions. Kick count twice a day. Continue vitamins. Patient has another anatomy scan coming up in 2 weeks VANIA Calculator Estimated Delivery Date Method Current WG Current Estimate 12/19/25 Ultrasound #1 34w 4d Other Estimates 09/23/25 LMP (Uncertain) 47w 0d 12/19/25 Ultrasound #2 34w 4d 12/19/25 Manual 34w 4d final VANIA: Notes Visit Date: 11/11/25 Last Updated by: Jania Arias CNM 09/26/25: 28w. EDC: 12/19/25. 83%UTD: resolved Visit Date: 10/06/25 Last Updated by: Jania Arias CNM 10/06: 3rd tri labs Visit Date: 09/08/25 Last Updated by: Jania Arias CNM sono: 08/12. IUP 21w4, 50%, pyelectasia L kidney(4.5mm) Visit Date: 08/11/25 Last Updated by: Jania Arias CNM 08/11: nipt: negative/girl Visit Date: 07/07/25 Last Updated by: Jania Arias CNM 24-year-old 3 para 1. Last. December 17, 2024. Patient has no dates. First ultrasound May 16, 2025, patient was 9 weeks. EDC December 19, 2025. O+, antibody screen negative, RPR nonreactive, rubella nonimmune, hepatitis B negative, HIV negative, hep C negative, GC and Chlamydia negative. U tox negative. SMA/CF negative. Office Procedures OBC Clinic LOC & Office Proc's Nursing/Assessment Patient Status: Established Patient OB Clinic Nursing Assessment: Medication Reconciliation, Update PMH in EMR and Vital Signs OB Clinic Coordination of Care: Complex Care and Chronic Disease 1-5, Education Complex Pt/Fam, Consent,records obtained, informed consent, Lab and Imaging orders, Results/Orders obtained and Staff clarify orders Special Needs: Heart tones Established Patient Charge Established Patient Point Assignment: 140 Established Patient Point Charge: EP Level 4 (120-155) Assessment & Plan Diagnosis / Problem List (1) Encounter for supervision of high risk in third trimester, antepa rtum: Status: Acute Plan Kick count twice a day. GBS next visit. Disability next visit. Discussed labor precautions. Prenatals are to be continued and discussed danger signs return to weeks OB check Additional Plan Follow Up: 2 Weeks (obc)
== END 2025-11-11 09:30 | disposition home or self-care (01) ==
LOC: HODSOBC 08:44
PROVIDERS: Supervising Provider Advanced Practice Midwife; Visit Provider Advanced Practice Midwife
DX: O09.93 Supervision of high risk pregnancy, unspecified, third trimester (principal); Z3A.34 34 weeks gestation of pregnancy
CPT/HCPCS: 99214; G0463